=== PATIENT | female | born 1940 | race Caucasian/White ===

== ENCOUNTER 2022-06-08 09:48 | Inpatient (IN) | payer MEDICARE, SELFPAY ==
[2022-06-08] VITALS (14 sets, daily range): BP systolic 96–134; BP diastolic 51–97; PULSE 67–90; RESP 12–18; TEMP 36.2–43; O2SAT 91–98; BMI 25.6; BMI 22.8
--- NOTE | 2022-06-08 10:19 | XR_ITS ---
FINAL REPORT CLINICAL HISTORY: Acute right wrist pain after fall COMPARISON: none FINDINGS: RIGHT WRIST Three views demonstrate a mildly impacted fracture of the distal radial metaphysis. There is mild dorsal angulation of the distal fracture fragments. There is also a nondisplaced fracture of the ulnar styloid process. Mild degenerative changes are noted. There is soft tissue swelling. IMPRESSION: Fractures as above. Reviewed, Interpreted and Dictated by Zachary Mckeon III, MD Transcribed by Mony Lindo Authenticated and [facility]
--- NOTE | 2022-06-08 10:19 | CT_ITS ---
FINAL REPORT TECHNIQUE: Axial CT images of the cervical spine were obtained without contrast. Sagittal and coronal reformatted images were also obtained. This study was performed with techniques to keep radiation doses as low as reasonably achievable (ALARA). Individualized dose reduction techniques using automated exposure control or adjustment of mA and/or kV according to the patient's size were employed. CLINICAL HISTORY: FALL COMPARISON: none FINDINGS: There is no evidence of fracture or dislocation. Mild to moderate degenerative changes are noted. There is evidence of partial fusion posteriorly of C3, C4, and C5. There is mild anterolisthesis of C4 on C5. There is no evidence of canal stenosis. No paraspinous soft tissue abnormality is seen. Limited images of the upper thorax are unremarkable. IMPRESSION: Mild degenerative change. No acute process. Reviewed, Interpreted and Dictated by Zachary Mckeon III, MD Transcribed by Mony Lindo Authenticated and [facility]
--- NOTE | 2022-06-08 10:19 | XR_ITS ---
FINAL REPORT CLINICAL HISTORY: FALL-- right hip pain and fracture COMPARISON: none FINDINGS: RIGHT HIP Two views of the right hip demonstrate a fracture of the right femoral neck. There is mild degenerative change. The femoral heads are properly located. No soft tissue abnormality is seen. There is presence of a ureteral stent partially outside of the patient's body. IMPRESSION: Right femoral neck fracture. Reviewed, Interpreted and Dictated by Zachary Mckeon III, MD Transcribed by Mony Lindo Authenticated and [facility]
--- NOTE | 2022-06-08 10:19 | CT_ITS ---
FINAL REPORT TECHNIQUE: Axial images of the head were obtained without contrast. Coronal reformatted images were also obtained. This study was performed with techniques to keep radiation doses as low as reasonably achievable (ALARA). Individualized dose reduction techniques using automated exposure control or adjustment of mA and/or kV according to the patient's size were employed. CLINICAL HISTORY: FALL-- right hip fracture and wrist fracture-- also hit head COMPARISON: None FINDINGS: There is generalized age-appropriate atrophy. Periventricular low-attenuation areas are seen consistent with mild chronic ischemic changes. There is no evidence of intracranial hemorrhage or mass. There is no evidence of acute infarct. There is no evidence of shift of the midline structures. No skull abnormality is seen on the bone window images. IMPRESSION: Atrophy and mild periventricular chronic ischemic changes. No acute intracranial abnormality identified. Reviewed, Interpreted and Dictated by Zachary Mckeon III, MD Transcribed by Mony Lindo Authenticated and [facility]
--- NOTE | 2022-06-08 10:30 | PC.NURSE ---
DR NICK AT BEDSIDE
--- NOTE | 2022-06-08 10:32 | XR_ITS ---
FINAL REPORT CLINICAL HISTORY: Chest pain, fall COMPARISON: none FINDINGS: A single portable view of the chest was obtained. The heart size is enlarged. Pulmonary vascular congestion is noted. The mediastinum is within normal limits. No acute pulmonary abnormality is identified. There is a small to moderate right pleural effusion. The bony thorax is intact. IMPRESSION: Small to moderate right pleural effusion. Reviewed, Interpreted and Dictated by Zachary Mckeon III, MD Transcribed by Mony Lindo Authenticated and [facility]
--- NOTE | 2022-06-08 10:32 | PC.NURSE ---
PT TO XR AT THIS TIME
--- NOTE | 2022-06-08 10:36 | HMH.EDGENADL ---
Discharge Plan Disposition Patient Disposition: Admitted As Inpatient Condition: Fair Prescriptions Prescriptions: No Action sulfamethoxazole-trimethoprim [Bactrim DS] 800-160 mg Tablet 1 tab PO BID magnesium oxide 400 mg (241.3 mg magnesium) Tablet 400 mg PO DAILY ursodiol 300 mg Capsule 1,200 mg PO HS Clinical Impressions Clinical Impression: Closed fracture of right hip, Fracture of right wrist, COVID-19 virus infection, Migration of ureteral stent Discharge ED Provider: Thomas Hoyt General Adult HPI General Chief complaint: Fall Stated complaint: pain from fall Time Seen by Provider: 06/08/22 10:25 Mode of Arrival: EMS Source of Information: Patient and EMS Limitations: No Limitations Description of Symptoms (Recalled from ER Triage Doc. by RN): PT FALL FROM STANDING AT [place], PT REPORTS HITTING HER HEAD, NO LOC. REPORTS RIGHT WRIST PAIN AND RIGHT HIP PAIN. PT STATES SHE WAS AMBULATING IN ROOM WITHOUT WALKER. NO OBVIOUS DEFORMITY. PAIN WITH MOVEMENT. NO BLOOD THINNERS DOCUMENTED ON EMAR, NO PAIN TO HEAD OR NECK. PT IS COVID +, HAD OUTPT LITHOTRIPSY YESTERDAY FOR KIDNEY STONE History of Present Illness HPI narrative: Patient is [place] [facility] [place] She says that she let go of her walker and fell from a standing position. Injured her right wrist and her right hip. She says she hit her head but not bad. Denies loss of consciousness. Denies headache or neck pain. Patient also reportedly had outpatient lithotripsy yesterday and at that time was discovered to be COVID-positive but felt to be asymptomatic. Patient tells me that she recently was hospitalized at [facility] and was on the ventilator for 6 days. Related Data Home Medications Medication Instructions Recorded Confirmed magnesium oxide 400 mg (241.3 mg 400 mg PO DAILY Supplement 06/08/22 06/08/22 magnesium) tablet sulfamethoxazole 800 1 tab PO BID Infection 06/08/22 06/08/22 mg-trimethoprim 160 mg tablet (Bactrim DS) ursodiol 300 mg capsule 1,200 mg PO HS GALLSTONES 06/08/22 06/08/22 Allergies Allergy/AdvReac Type Severity Reaction Status Date / Time No Known Allergies Allergy Verified 06/08/22 10:19 [facility] Disclaimer: The information contained in this section may have been updated after the patient was seen, as this information can be updated by other users. Social History Smoking Status: Never smoker ROS Obtained: Yes Systems reviewed as appropriate & no additional complaints except as documented Constitutional Constitutional: Denies fever(s), Denies headache(s) and Denies weakness ENT Ears, Nose, Mouth, and Throat: Denies headache(s), Denies nasal discharge, Denies neck pain and Denies sore throat Cardiovascular Cardiovascular: Denies chest pain Respiratory Respiratory: Denies shortness of breath and Denies cough Gastrointestinal Gastrointestingal: Denies abdominal pain, constipation, diarrhea or vomiting Genitourinary Female Genitourinary: Denies difficulty voiding, Denies dysuria and Denies flank pain Musculoskeletal Musculoskeletal: Reports arthralgias (Right hip and wrist), Denies back pain, Denies neck pain and Denies numbness Neurologic Neurologic: Denies headache(s), Denies numbness and Denies weakness Physical Exam General General appearance: alert and in no apparent distress Head Head exam: atraumatic and normocephalic Eye Eye exam: Present normal appearance and EOMI ENT ENT exam: Present mucous membranes moist Neck Neck exam: Present normal inspection and trachea midline Chest Chest inspection: Present normal inspection and symmetric chest wall rise Respiratory Respiratory exam: Present normal lung sounds bilaterally; Absent respiratory distress Cardiovascular Cardiovascular exam: Present regular rate, normal rhythm and normal heart sounds Abdominal Exam Abdominal exam: Present soft and normal bowel sounds; Absent distention, tenderness
--- NOTE | 2022-06-08 10:37 | CT_ITS ---
FINAL REPORT TECHNIQUE: Axial images through the pelvis were performed by computed tomography. Sagittal and coronal reconstruction images were performed. This study was performed with techniques to keep radiation doses as low as reasonably achievable (ALARA). Individualized dose reduction techniques using automated exposure control or adjustment of mA and/or kV according to the patient's size were employed. CLINICAL HISTORY: fall, right hip fracture COMPARISON: none FINDINGS: The appendix is not identified. The urinary bladder is unremarkable. Moderate free fluid is noted. There is a left ureteral stent identified. The visualized portions of the GI tract are unremarkable. Fracture of the right femoral neck. Femoral heads are properly located. There is mild degenerative change noted. Musculature is intact. IMPRESSION: Right femoral neck fracture. Reviewed, Interpreted and Dictated by Zachary Mckeon III, MD Transcribed by Mony Lindo Authenticated and [facility]
--- NOTE | 2022-06-08 10:37 | CT_ITS ---
FINAL REPORT TECHNIQUE: Thin section axial CT images with coronal and sagittal reformats were performed. This study was performed with techniques to keep radiation doses as low as reasonably achievable (ALARA). Individualized dose reduction techniques using automated exposure control or adjustment of mA and/or kV according to the patient''s size were employed. CLINICAL HISTORY: FALL-- right hip fracture COMPARISON: none FINDINGS: There is a fracture of the right femoral neck. There is external rotation of the distal fracture fragment. Femoral head is properly located. There are no masses or fluid collections. There are no soft tissue abnormalities. IMPRESSION: Right femoral neck fracture. Reviewed, Interpreted and Dictated by Zachary Mckeon III, MD Transcribed by Mony Lindo Authenticated and [facility]
--- NOTE | 2022-06-08 11:05 | PC.NURSE ---
Meds administered MS 2mg and Zofran 4mg IV
[2022-06-08 11:13] LABS: Chloride 115 mmol/L (98-107); Potassium 3.9 mmoL/L (3.5-5.1); Sodium 140 mmol/L (136-145)
[2022-06-08 11:15] LABS: Basophils % 0.3 % (0.1-2.0); Eosinophils % 0.1 % (0.1-12.0); Hematocrit 38.6 % (37.0-47.0); Hemoglobin 11.8 g/dL (12.2-16.2); Lymphocytes # 1.2 K/mm3 (0.7-4.5); Lymphocytes % 12.2 % (10-50); Mean Corpuscular HGB Conc 30.6 g/dL (31.8-35.4); Mean Corpuscular Hemoglobin 33.9 pg (27.0-31.2); Mean Corpuscular Volume 110.8 fl (81-99); Monocytes # 0.5 K/mm3 (0.1-1.0); Monocytes % 5.2 % (1.7-9.3); Neutrophils # 8.3 K/mm3 (1.8-7.8); Neutrophils % 82.2 % (37.0-80.0); Platelet Count 202 K/mm3 (142-424); Red Blood Count 3.49 M/mm3 (4.20-5.40); Red Cell Distribution Width 16.8 % (11.5-17.5); White Blood Count 10.1 K/mm3 (4.8-10.8)
[2022-06-08 11:16] LABS: Alanine Aminotransferase 26 U/L (12-78); Albumin Level 2.3 g/dl (3.5-5.0); Albumin/Globulin Ratio 0.6 (1.1-1.8); Alkaline Phosphatase 288 U/L (38-126); Anion Gap 5.9 mEq/L (5-15); Aspartate Amino Transferase 45 U/L (14-36); Bilirubin,Total 1.7 mg/dl (0.2-1.3); Blood Urea Nitrogen 9 mg/dl (7-17); Carbon Dioxide 23 mmol/L (22.0-30.0); Creatinine Clearance Estimated 43 mL/min (50-200); Estimated Glomerular Filt Rate 118 ml/min (>60); GFR (African American) 143 ML/MIN (>60); Total Protein,Serum 6.3 g/dl (6.3-8.2)
[2022-06-08 11:17] LABS: Calcium 7.8 mg/dl (8.4-10.2); Glucose 132 mg/dl (74-100)
--- NOTE | 2022-06-08 11:20 | PC.NURSE ---
[address]
[2022-06-08 11:26] LABS: Influenza A, PCR Not Detected (NotDetected); Influenza B, PCR Not Detected (NotDetected)
[2022-06-08 11:26] LABS: NT Pro Brain Natriuretic Pep. 809 pg/mL (0-450)
--- NOTE | 2022-06-08 11:26 | PC.NURSE ---
DR. NICK AT BEDSIDE TO UPDATE PT
--- NOTE | 2022-06-08 11:42 | PC.NURSE ---
DAUGHTER CALLED TO CHECK ON PT, DAUGHTER UPDATED AT THIS TIME
--- NOTE | 2022-06-08 11:46 | PC.NURSE ---
DR NICK SPEAKING WITH DR. FABIAN
[2022-06-08 12:00] LABS: Coronavirus 19, PCR Detected (NotDetected)
--- NOTE | 2022-06-08 12:00 | PC.NURSE ---
Calling [facility] MD[facility] for Dr Hoyt to talk to [facility] about patient. Dr Mondragon is [facility] dr who done procedure.
--- NOTE | 2022-06-08 12:09 | ECG_ITS ---
APPROVED REPORT Exam: Resting ECG HR:85 bpm ECG Measurements Heart Rate 85 AXES AK 184 P 69 QRSd 100 QRS 8 QT 393 T 66 QTc 435 Conclusion SINUS RHYTHM LOW QRS VOLTAGE IN EXTREMITY LEADS [QRS DEFLECTION < 0.5 mV IN LIMB LEADS] BORDERLINE ECG UNCONFIRMED REPORT Electronically signed by : Aaron Mills MD 06/08/2022 21:49:40
--- NOTE | 2022-06-08 12:18 | PC.NURSE ---
DR. NICK SPEAKING WITH [facility]
--- NOTE | 2022-06-08 12:20 | PC.NURSE ---
1220 RN AT BEDSIDE WITH ED MD TO REMOVE URETHRAL STENT PER [facility] RECOMMENDATION
--- NOTE | 2022-06-08 12:24 | PC.NURSE ---
Dr Hoyt talked to Dr Guerra at [facility]
--- NOTE | 2022-06-08 12:34 | PC.NURSE ---
Right FA, wrist sugartong splint applied; distal digital PMS intact, pt tolerated well
--- NOTE | 2022-06-08 12:35 | PC.NURSE ---
Had upset operator page Dr Mosher for consult on patient. Dr Hoyt talking to Dr Mosher about patient.
--- NOTE | 2022-06-08 12:36 | PC.NURSE ---
DR. NICK SPEAKING WITH DR. DOAN
--- NOTE | 2022-06-08 12:39 | PC.NURSE ---
speaking to dr cooper
--- NOTE | 2022-06-08 12:43 | PC.NURSE ---
Called care management and talked to Brenda about admission to Dr Thornton and Dr Mosher to do surgery
--- NOTE | 2022-06-08 13:22 | PC.NURSE ---
DAUGHTER UPDATED AT THIS
--- NOTE | 2022-06-08 13:35 | PC.NURSE ---
REPORT GIVEN TO Anshu THACKER RN
--- NOTE | 2022-06-08 13:49 | EXP.HP ---
History of Present Illness *Admission Date: 06/08/22 *Reason for visit:: Fall, hip pain *History of present illness: Ms. Darby is an 82-year-old female with history of Sjogren's and Raynaud's who was previously independent at home and lives with her (who is legally blind per her report). Has been in a nursing facility recently after severe illness at necessitating ventilation for 6 days due to severe sepsis. Currently undergoing rehab at [facility] where she fell from a standing position. Upon falling, she sustained injury to her right wrist and right hip. Imaging in the ER showing right wrist fracture and right femoral neck fracture. Orthopedics consulted in the ER. Patient necessitates surgical fixation of right hip. Medicine consulted for admission. After arriving to the floor, patient appears comfortable, in supine position. No pain if she does not move. Complains of some dry mouth and has significant history of autoimmune disorders. Is on minimal medication however including ursodiol. No blood pressure meds. No history of chronic kidney disease. No reported heart disease. Does not wear oxygen. Previously ambulatory at baseline. Of note, admitted to the [facility] on 05/06/2022 and discharged on 05/22/2022. Was admitted for septic shock, encephalopathy, secondary to Klebsiella UTI and obstructing kidney stone.. Completed 7 days of antibiotics during admission. Review of patient's records at show extensive hospitalization. Treated for oral HSV with valacyclovir (last dose 05/22). Requiring Magic mouthwash for oral pain. Records also show history of stable/compensated cirrhosis. 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 Was discharged to rehab on room air. Documents seem to support that she was ventilated from 05/06 through 05/11. Yesterday underwent ureteroscopy with laser lithotripsy and placement of of stent at . Stent appears to have partially come out, removed in the ER. Lopez placed with urinalysis obtained showing concern for persistent UTI release grossly abnormal UA. Urine cultures pending. We will plan to cover empirically at this time with antibiotics. [facility] Disclaimer: The information contained in this section may have been updated after the patient was seen, as this information can be updated by other users. Medical History History of sepsis Kidney stone Surgical History H/O bilateral oophorectomy H/O lithotripsy History of appendectomy History of section History of urethral stent Family History No significant family history Social History Smoking Status: Never smoker alcohol intake: never current occupational status: retired Travel in the last 8 weeks: None housing: assisted living facility lives independently: No Review of Systems Review of Systems Review of systems (narrative): 14 point review of systems performed, pertinent positives and negatives as per HPI Constitutional Constitutional: Denies headache(s) and Denies weakness ENT Ears, Nose, Mouth, and Throat: Denies headache(s) *Musculoskeletal Musculoskeletal: Denies numbness *Neurologic Neurologic: Denies headache(s), Denies numbness and Denies weakness Meds Home Medications and Allergies Home Medications Medication Instructions Recorded Confirmed Type magnesium oxide 400 mg (241.3 mg 400 mg PO DAILY Supplement 06/08/22 06/08/22 History magnesium) tablet sulfamethoxazole 800 1 tab PO BID Infection 06/08/22 06/08/22 History mg-trimethoprim 160 mg tablet (Bactrim DS) ursodiol 300 mg capsule 1,200 mg PO HS GALLSTONES 06/08/22 06/08/22 History New Prescriptions to Start Prescriptions: Allergies Allergy/AdvRea
[2022-06-08 13:51] LABS: Microscopic, Urine URINE MICROSCOPIC (MICROSCOPIC)
--- NOTE | 2022-06-08 14:15 | P.CONPHA_ITS ---
Pharmacy Intervention Comments: MEDICATION RECONCILIATION COMPLETED ON PATIENT USING MAR FROM [facility]. -JAYLYN LARSON, LUCIEND
--- NOTE | 2022-06-08 14:15 | HMH.PHAINT1 ---
Pharmacy Intervention Comments: MEDICATION RECONCILIATION COMPLETED ON PATIENT USING MAR FROM [facility] HOME. -JAYLYN LARSON, LUCIEND
[2022-06-08 14:16] LABS: Appearance,Urine CLEAR (Clear); Blood, Urine 3+ (Negative); Color,Urine YELLOW (Yellow); Glucose,Urine (UA) Negative (Negative); Ketones,Urine Negative (Negative); Leukocyte Esterase,Urine 2+ (Negative); Nitrate,Urine Negative (Negative); PH,Urine 6.5 (5.0-8.5); Protein,Urine TRACE (Negative); Specific Gravity, Urine 1.025 (1.005-1.030)
--- NOTE | 2022-06-08 14:26 | SW/DCPLANNER ---
Addendum entered by Antoinette Padilla RN 06/09/22 08:39: Spoke with Josy at [facility] who states patient can return there today if medically stable. Dr. Thornton states patient will be discharged. She was already receiving therapy there and so does not require an evaluation today. Original Note: This patient currently resides at [facility] level of care. Josy rebolledo/ [facility] stated that patient is paying bedhold and can return once medically stable for discharge. I will continue to follow up and send updates to [facility].
[2022-06-08 14:30] LABS: Bilirubin,Urine 1+ (Negative)
--- NOTE | 2022-06-08 14:39 | EXP.ORTH.CON ---
Documented by User: UBALDO Brewster 06/08/22 14:55 History of Present Illness *Admission Date: 06/08/22 *Reason for visit:: Right hip fracture, right wrist fracture *History of present illness: Mrs. Darby is an 82 year old female admitted to the acute inpatient service after sustaining a mechanical fall at [facility] [place] where she currently resides. This afternoon the patient is lying comfortably in bed. She states that she was walking in her room in the group home this morning without the use of a walker when she fell onto her right side, causing her to injure her right hip and wrist. She is unsure of how or why she fell. She states that she was unable to ambulate at that time so she was subsequently brought to the [facility] emergency department where x-ray demonstrated a right subcapital femoral neck fracture and right distal radius fracture. Patient reports right hip pain as to be expected. She denies dizziness, loss of consciousness, or any other injuries at this time. At baseline she states that she normally lives in her own home with her and is ambulatory without the use of any walking aids. She is typically independent for all activities of daily living. She was recently placed at [facility] for short-term rehabilitation after being admitted to the [facility] with sepsis and encephalopathy secondary to severe urinary tract infection from obstructing left ureteral stone. She required mechanical ventilation and pressor support at that time. Per ER documentation, the patient underwent outpatient cytoscopy, ureteroscopy, stent exchange, and basket removal of left ureteral stone yesterday. No history of any distal tingling/numbness. She denies any other symptoms or concerns at this time. [facility] Disclaimer: The information contained in this section may have been updated after the patient was seen, as this information can be updated by other users. Medical History History of sepsis Kidney stone Surgical History H/O bilateral oophorectomy H/O lithotripsy History of appendectomy History of section History of urethral stent Family History No significant family history Social History Smoking Status: Never smoker alcohol intake: never current occupational status: retired Travel in the last 8 weeks: None housing: assisted living facility lives independently: No Review of Systems Constitutional Constitutional: Denies headache(s) and Denies weakness ENT Ears, Nose, Mouth, and Throat: Denies headache(s) *Musculoskeletal Musculoskeletal: Denies numbness *Neurologic Neurologic: Denies headache(s), Denies numbness and Denies weakness Meds Home Medications and Allergies Home Medications Medication Instructions Recorded Confirmed Type magnesium oxide 400 mg (241.3 mg 400 mg PO DAILY Supplement 06/08/22 06/08/22 History magnesium) tablet sulfamethoxazole 800 1 tab PO BID Infection 06/08/22 06/08/22 History mg-trimethoprim 160 mg tablet (Bactrim DS) ursodiol 300 mg capsule 1,200 mg PO HS GALLSTONES 06/08/22 06/08/22 History New Prescriptions to Start Prescriptions: Allergies Allergy/AdvReac Type Severity Reaction Status Date / Time No Known Allergies Allergy Verified 06/08/22 10:19 Ortho Exam (Inpt) Vital signs and Labs for Last 24 Hours: Temp Pulse Resp BP Pulse Ox 97.7 F 87 17 115/57 L 92 L 06/08/22 14:04 06/08/22 14:04 06/08/22 14:04 06/08/22 14:04 06/08/22 14:04 Laboratory Results - last 24 hr 06/08/22 10:55: WBC 10.1, RBC 3.49 L, Hgb 11.8 L, Hct 38.6, MCV 110.8 H, MCH 33.9 H, MCHC 30.6 L, RDW 16.8, Plt Count 202, MPV 9.0, Neut % (Auto) 82.2 H, Lymph % (A
[2022-06-08 14:40] LABS: RBC,Urine 20-50 #/hpf (0-3)
[2022-06-08 14:41] LABS: Bacteria,Urine Trace /lpf; Squamous Epithelial Cell,Urine Occasional #/hpf (0-5)
--- NOTE | 2022-06-08 20:55 | XR_ITS ---
PROCEDURE INFORMATION: Exam: XR Right Hip Exam date and time: 06/08/2022 11:21 PM Age: 82 years old Clinical indication: Screening exam; Post op; Prior surgery; Additional info: Postop in pacu, ap / cross table latera S/P R lyric TECHNIQUE: Imaging protocol: Radiologic exam of the Right hip. Views: 2 or 3 views hip with pelvis when performed. 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 There is no acute osseous finding. The bony pelvis is intact. Left hip is normally aligned. Soft tissues: Postsurgical changes of the soft tissues surrounding the right hip are noted. IMPRESSION: Anatomic alignment of the bipolar right hip prosthesis.
--- NOTE | 2022-06-08 20:56 | EXP.ANES.CKL ---
[facility] Disclaimer: The information contained in this section may have been updated after the patient was seen, as this information can be updated by other users. Medical History History of sepsis Kidney stone Surgical History H/O bilateral oophorectomy H/O lithotripsy History of appendectomy History of section History of urethral stent Family History No significant family history Social History Smoking Status: Never smoker alcohol intake: never substance use type: denies use current occupational status: retired Travel in the last 8 weeks: None housing: assisted living facility lives independently: No [facility] Anesthesia Checklist Patient Identification Patient Identification: Arm Band Structural Data Admitted From: Inpatient Planned Operative Procedure/s: Right Hip Hemiarthroplasty Consent for Planned Operative Procedure(s) Verified: Yes Verified Documents: Surgical Consent and History and Physical Additional verifications Anesthesia Reactions: No Airway Assessment C-Spine Mobility Assessed: Yes TMJ Mobility Assessed: Yes Dentition: Good Dentition Neurological Assessment Level of Consciousness: Awake and Alert Anesthesia Plan Anesthesia Risk discussed: Yes Anesthesia Plan: Verified ASA Class: II Anesthesia Type: MAC w/Spinal
--- NOTE | 2022-06-08 21:00 | XR_ITS ---
PROCEDURE INFORMATION: Exam: XR Right Wrist Exam date and time: 06/08/2022 9:00 PM Age: 82 years old Clinical indication: Screening exam; Post reduction in operating room using c-arm visualization. ; Additional info: Closed reduction right wrist using c-arm guidance. TECHNIQUE: Imaging protocol: Radiologic exam of the Right wrist. Views: 1 or 2 views. COMPARISON: CR XR WRIST RT MIN 3V 06/08/2022 10:28 AM FINDINGS: Bones/joints: 2 intraoperative spot films of the right wrist are obtained with the wrist in a cast. Detail is quite limited. Gross normal alignment is noted on both views. Specifically, no significant angulation is noted on the lateral view. Soft tissues: Soft tissues can not be evaluated. IMPRESSION: Limited detail intraoperative images of the right wrist in a cast. Alignment is grossly normal without significant angulation appreciated. Dedicated postoperative images are recommended.
--- NOTE | 2022-06-08 22:39 | XR_ITS ---
PROCEDURE INFORMATION: Exam: XR Right Wrist Exam date and time: 06/08/2022 11:21 PM Age: 82 years old Clinical indication: Screening exam; Postop; Prior surgery; Additional info: Postop in pacu S/P closed reduction / cast TECHNIQUE: Imaging protocol: Radiologic exam of the Right wrist. Views: 3 or more views. COMPARISON: SD XR WRIST RT 2V 06/08/2022 9:00 PM FINDINGS: Bones/joints: Right wrist is in a cast. The osseous structures are diffusely osteopenic. The distal radial fracture is difficult to identify due to the overlying cast and osteopenia. Anatomic alignment is noted involving the distal aspect of the radius without angulation present. The DRUJ is intact. The carpal bones are normally aligned with prominent degenerative changes of the radial aspect of the wrist. Soft tissues: The soft tissues can not be evaluated. IMPRESSION: A cast is in place over the right wrist. The distal radius is anatomically aligned. The fracture is difficult to identify due to the cast and significant osteopenia.
--- NOTE | 2022-06-08 22:40 | EXP.OP.NOTE ---
Date of procedure: 06/08/22 Pre-op Diagnosis:: Right femoral neck fracture, right distal radius fracture Post-op Diagnosis:: Same Procedure performed:: 86817: Cemented right hip hemiarthroplasty 60932: Closed reduction and casting right distal radius fracture Surgeon:: Anil Mosher JR, MD Supervisor Customer Services(s):: Renetta Garcia PA-C SAUSAGE TIER:: Dyllan Guidry Anesthesia: GETA Estimated blood loss (mL): 200 Clinical Note:: 82-year-old female fell, sustained right femoral neck and right distal radius fracture. I had a discussion with her regarding further management, recommended right cemented hip hemiarthroplasty, closed reduction with long-arm cast for her distal radius. She was amenable with the plan. We discussed the risk and benefits of surgery. Risks included but were not limited to pain, bleeding, infection, damage to adjacent structures, need for further surgery, wound healing complications, loss of limb, . Patient expressed verbal consent and written consent was obtained for the above procedure. Operative findings:: Grossly symmetric leg lengths, hip stable through range of motion, appropriate alignment of distal radius fracture. Size 0 stem, size 45 bipolar head, standard offset stem, +0 head. Ortiz [employer] Nephew implants. Operative note:: Patient was identified in preoperative holding. Operative site was marked in indelible ink. History, physical, consent were reviewed and updated. Patient was surrendered to the anesthesia team, taken to the operative suite. Anesthesia was induced. Patient was then placed in the lateral decubitus position on a well-padded operative table. All bony prominences were padded and an axillary roll was placed. The operative extremity was prepped and draped in the usual sterile fashion. The operative team donned sterile gowns and gloves and a timeout was called. All in attendance agreed regarding the patient's identity, procedure, operative site. Weight-based dose of antibiotics was given prior to incision. A skin maker was then used to robi all bony prominences. Skin incision was then carried out extending from the greater trochanter in a curvilinear fashion posteriorly across the buttocks. I incised the skin with a scalpel, then using a Bovie dissected through tissues. The fascia olaf was incised utilizing Metzenbaum scissors. This was taken down to the bursa, which was removed utilizing a rongeur. Utilizing a periosteal elevator as well as the sponge, the fat was then freed from the short external rotators of the left hip after these were placed and stretched. The sciatic nerve was protected. Bovie was used to remove the short external rotators from the greater trochanter, which revealed the joint capsule. His were tagged for later repair. The capsule was cleared and incised utilizing a T-shape incision. A fracture hematoma was noted upon entering the joint capsule as well as the femoral neck fracture. A cork screw was then used to remove the fractured femoral head, which was given to the production line technician which was sized on the back table. All bony remnants were then removed from the acetabulum and surrounding soft tissue with a rongeur. Acetabulum was then inspected and found to be clear. Attention was then turned to the proximal femur where a cutting tunnel was used to robi the femur for the femoral neck cut. A sagittal saw was then used to make the femoral cut. Box osteotome was then used to remove the bone from proximal femur. A femoral neck elevator was utilized. Next, attention was turned to broaching. Initially, a small broach was placed, first making efforts to lateralize the broach then the femoral canal. Next, the trial components were inserted consisting of the above-mentioned component sizes. The hip was taken through range of motion and tested to adduction, internal and external rotations as well as with a shuck and a posterior directed force on a flexed hip. It was noted that these size were stable through the ran
--- NOTE | 2022-06-08 23:15 | P.PNANES_ITS ---
[facility] Anesthesia Record Part I Anesthesia Record I Intake, IV Amount: 1,300 Estimated blood loss (mL): 200 Urine output (mL): 200 Blood Products used (#): none Blood Pressure: 121/66 SaO2: 92 Pulse Rate: 89 Respiratory Rate: 16 Temperature: 97.2 F Patient is:: Drowsy and Stable Stable to PACU at:: 23:10
--- NOTE | 2022-06-08 23:34 | PC.NURSE ---
REPORT TAKEN FROM CARLIN JOHNSON RN IN PACU AT THIS TIME.
--- NOTE | 2022-06-08 23:42 | PC.NURSE ---
Arrived back to floor from surgery via stretcher @ 1200.
--- NOTE | 2022-06-08 23:51 | SUR.PHASEI ---
2340-Detailed report called to JACINTO Viveros 2345- Brought pt up to room 202 accompanied by this RN and JACINTO Easton. Bedside hand off given to JACINTO Viveros 2346- During report, pt's rt hand began turning purple. This RN requested Guanako Garces APRN to come to bedside to assess cast and pt's hand. GRATED CHEESE MAKER did asses and said her fingers were still warm to touch and had appropriate cap refill, the color of her fingers could be d/t her autoimmune disorder. NNO at this time.
[2022-06-09] VITALS (10 sets, daily range): BP systolic 90–126; BP diastolic 50–68; PULSE 58–86; RESP 16–20; TEMP 36.1–36.6; O2SAT 90–93; BMI 24.1
--- NOTE | 2022-06-09 00:03 | PC.NURSE ---
UPON PT ARRIVING TO THE FLOOR FROM PACU IT WAS NOTED THAT PT'S FINGERS LOOKED DUSKY AND SLIGHTLY PURPLE. JUNE ANDRADE WAS CALLED AND CAME TO SEE PT. STATED THAT THE CAST ON PT'S RT ARM DID NOT APPEAR TO BE TOO TIGHT AT THE MOMENT NAD TO MONITOR PT'S FINGERS CLOSELY.
--- NOTE | 2022-06-09 01:52 | PC.NURSE ---
SPOKE WITH PT'S DAUGHTER AND UPDATED HER ON PT STATUS.
--- NOTE | 2022-06-09 04:22 | PC.NURSE ---
NO ACUTE CHANGES SINCE PT ARRIVED BACK FROM SURGERY. PT HAS RESTED WELL. HAS C/O PAIN X1 THIS MORNING AND WAS MEDICATED PER MAR FOR PAIN. FINGERS ON RIGHT HAND ARE STILL DUSKY BUT ARE WARM TO TOUCH. CADASTRAL SURVEYOR IS AWARE. VSS. PT HAS STATED THAT HER LEGS FEEL HEAVY. DAUGHTER HAS CALL SEVERAL TIMES TO CHECK ON PT THIS SHIFT. CARLI REMAINS IN PLACE.
[2022-06-09 07:36] LABS: Chloride 119 mmol/L (98-107)
[2022-06-09 07:37] LABS: Potassium 4.1 mmoL/L (3.5-5.1); Sodium 144 mmol/L (136-145)
[2022-06-09 07:38] LABS: Basophils # 0.1 K/mm3 (0-0.2); Basophils % 0.5 % (0.1-2.0); Eosinophils # 0.2 K/mm3 (0.0-0.4); Eosinophils % 1.2 % (0.1-12.0); Hematocrit 35.3 % (37.0-47.0); Lymphocytes # 1.8 K/mm3 (0.7-4.5); Lymphocytes % 14.1 % (10-50); Mean Corpuscular HGB Conc 31.3 g/dL (31.8-35.4); Mean Corpuscular Hemoglobin 34.1 pg (27.0-31.2); Mean Corpuscular Volume 109.1 fl (81-99); Monocytes # 0.8 K/mm3 (0.1-1.0); Monocytes % 6.2 % (1.7-9.3); Neutrophils # 9.9 K/mm3 (1.8-7.8); Platelet Count 150 K/mm3 (142-424); Red Blood Count 3.24 M/mm3 (4.20-5.40); Red Cell Distribution Width 16.9 % (11.5-17.5); White Blood Count 12.6 K/mm3 (4.8-10.8)
[2022-06-09 07:39] LABS: Alanine Aminotransferase 21 U/L (12-78); Aspartate Amino Transferase 48 U/L (14-36); Blood Urea Nitrogen 9 mg/dl (7-17); Creatinine Clearance Estimated 41 mL/min (50-200); Estimated Glomerular Filt Rate 153 ml/min (>60); GFR (African American) 185 ML/MIN (>60)
[2022-06-09 07:40] LABS: Albumin Level 1.9 g/dl (3.5-5.0); Albumin/Globulin Ratio 0.6 (1.1-1.8); Alkaline Phosphatase 229 U/L (38-126); Anion Gap 7.1 mEq/L (5-15); Bilirubin,Total 1.4 mg/dl (0.2-1.3); Calcium 7.6 mg/dl (8.4-10.2); Carbon Dioxide 22 mmol/L (22.0-30.0); Globulin 3.1 g/dL (1.3-3.2); Glucose 74 mg/dl (74-100); Magnesium 1.7 mg/dl (1.6-2.3)
--- NOTE | 2022-06-09 08:17 | EXP.DC.SUM ---
General Admission date:: 06/08/22 Discharge date: 06/09/22 HPI HPI HPI: Ms. Darby is an 82-year-old female with history of Sjogren's and Raynaud's who was previously independent at home and lives with her (who is legally blind per her report). Has been in a nursing facility recently after severe illness at necessitating ventilation for 6 days due to severe sepsis. [place] [facility] [place] position. Upon falling, she sustained injury to her right wrist and right hip. Imaging in the ER showing right wrist fracture and right femoral neck fracture. Orthopedics consulted in the ER. Patient necessitates surgical fixation of right hip. Medicine consulted for admission. After arriving to the floor, patient appears comfortable, in supine position. No pain if she does not move. Complains of some dry mouth and has significant history of autoimmune disorders. Is on minimal medication however including ursodiol. No blood pressure meds. No history of chronic kidney disease. No reported heart disease. Does not wear oxygen. Previously ambulatory at baseline. Of note, admitted to the [facility] on 05/06/2022 and discharged on 05/22/2022. Was admitted for septic shock, encephalopathy, secondary to Klebsiella UTI and obstructing kidney stone.. Completed 7 days of antibiotics during admission. Review of patient's records at show extensive hospitalization. Treated for oral HSV with valacyclovir (last dose 05/22). Requiring Magic mouthwash for oral pain. Records also show history of stable/compensated cirrhosis. 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 Was discharged to rehab on room air. Documents seem to support that she was ventilated from 05/06 through 05/11. Yesterday underwent ureteroscopy with laser lithotripsy and placement of of stent at . Stent appears to have partially come out, removed in the ER. Lopez placed with urinalysis obtained showing concern for persistent UTI release grossly abnormal UA. Urine cultures pending. We will plan to cover empirically at this time with antibiotics. Hospital Course Hospital Course Hospital Course: 82-year-old female with recent hospitalization for sepsis at , has been receiving therapy at [place]. Fell from standing height and broke her right hip and right wrist. ER consulted with hospital medicine for admission, hospitalist made determination to admit for orthopedics and surgical intervention. initiated on IV fluids and IV pain medication. Anticipate surgery later this afternoon. Problems addressed as follows: Right femoral neck fracture Right wrist fracture Severe pain -Orthopedics consulted, appreciate their recommendations on patient. Patient taken for surgery evening of 06/08. Right hip fixed, see Ortho documentation for full details. Underwent cemented right hip hemiarthroplasty. PT and OT evaluated patient on morning of 06/09. WBT as tolerated. Stable for [facility] for [facility]hab. Recommend xarelto 10 mg daily for DVT prophylaxis. Of note, right wrist fracture casted only. 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 Continue ursodiol 1200 mg nightly per home regimen UTI Recent lithotripsy - Reviewed patient's records from via [facility], positive for Klebsiella pneumoniae UTI that was pansensitive. Completed empiric antibiotics during hospitalization. Given lithotripsy yesterday and abnormal urinalysis with leukesterase and nitrite, initiated ceftriaxone IV 1 g daily pending urine culture. Recommend continuing 1gm IM for 7 days. Of note, stent removed after ER discussion with patient's urologist at . Keep follow-up appointment as scheduled previously. Severe Protein calorie malnutrition: patient has significant lower extremity edema, hypoalbuminemia, and macrocytosis. Concerning for malnutrition. Initiated on
--- NOTE | 2022-06-09 09:48 | HMH.PTEV ---
Physical Therapy Evaluation Rehab PT IP Evaluation Start: 06/08/22 20:51 Freq: ONCE Status: Active Protocol: Document 06/09/22 09:40 PHORJAIME (Rec: 06/09/22 09:47 PHORNE [id number]) Subjective/History History History 82 yowf adm [place] [facility] [place] [facility] [place] R [place] fx and R BBFFx, now S/P R hip PUENTE and closed reduction with casting of R UE. She will be WBAT to the R LE and NWB to the R UE at this time. She has hx of significant co- morbidities and recent extended hospitalization with oral intubation which necessitated her rehab stay. She presents this date with 4+ pitting edema to B LE. Subjective Subjective Pt c/o pain all over even prior to mobility attempts. Rehab PT IP Eval Objective Appearance Patient Behavior Guarded,Confused Patient Orientation Person Difficulty following instructions mild Speech Pattern Clear Ambulation Patient Able to Ambulate No Balance Ability to Arise Unable Sitting Balance Leans or slides in chair Dynamic Sitting Balance Ability Poor Transfers Bed Transfer Ability Total/Dependent (100%) ROM All Extremities PT ROM Status WFL Abnormal ROM Comment except R UE NT due to cast from elbow distal. MMT All Extremities PT MMT ABN Rehab PT IP prob,goals,plan Problems Date of Evaluation: 06/09/22 PT IP Problems Bed Mobility,Transfers Rehab Potential Rehab Potential Fair Plan PT Intervention Plan Bed Mobility,Transfers, Therapeutic Exercise PT Plan Frequency BID Duration LOS Discharge Goals Bed Transfer Ability Maximum x 2 (75% assist) Sit to Stand Chair Transfer Ability Total/Dependent (100%) Discharge Plan PT Discharge Plan Pt is currently most appropriate for SNF placement once medically stable for d/c. G -code Required No Eval Complexity Eval Charge Codes 43140 - High Complexity PHYSICIAN CERTIFICATION: I certify the specified therapy services for Traci Darby are required, authorized, and reviewed every 30 days.
--- NOTE | 2022-06-09 10:05 | HMH.OTEV ---
OT Inpatient Evaluation Rehab OT IP Evaluation Start: 06/08/22 20:51 Freq: ONCE Status: Active Protocol: Document 06/09/22 09:44 [facility] (Rec: 06/09/22 10:04 [facility] [id number]) Rehab OT IP Assessment Subjective History Pt is oriented x2 person and . Pt was admitted to [facility] on 06/08/22 due to Fall, hip pain. Pt was unable to answer PLOF questions due to confusion. Pt was at [facility] [place] a [place] and sustained a Right hip and wrist fx. She required a Closed reduction and casting right distal radius fracture and Cemented right hip hemiarthroplasty on 06/08/22. Prior to SNF stay she had a long hospitalization at with mechanical ventilation requiring skilled thearpy stay . Pt also has multiple co- morbidities. Pt has a past medical history of the following: H/O bilateral oophorectomy H/O lithotripsy History of appendectomy History of section History of urethral stent Subjective I'll scream. It hurts. Objective Patient Orientation Person,Birthday Upper Extremity Gross ROM Mod Limitation 50% Shoulder ROM Limitations Muscle Weakness,Pain Elbow ROM Limitations Muscle Weakness,Pain Wrist Limitations of Range of Motion Muscle Weakness,Pain Bed Mobility bed mobility-scooting,bed mobility - supine/sit,bed mobility - rolling Assist Level Total/Dependent (100%) decrease in endurance Yes Rehab OT IP prob,goals,plan Problems Date of Evaluation: 06/09/22 OT IP Problems Bed Mobility,Transfers,Balance ,Self care,Safety Rehab Potential Rehab Potential Good Equipment Needs Assistive Devices Rolling / Wheeled Walker Plan OT intervention Plan Bed Mobility,Transfers,Balance ,Self care,Safety,Therapeutic Exercise OT Plan Frequency BID Duration LOS Discharge Goals Bed Mobility Ability
--- NOTE | 2022-06-09 10:19 | EXP.ORTH.PN ---
Subjective *Date: 06/09/22 *Time: 09:30 Interval history: Mrs. Darby is an 82-year-old female who underwent a right hip cemented hemiarthroplasty and right distal radius closed reduction yesterday evening 06/08/[address] Mosher. Today the patient is postop day #1. This morning the patient is lying comfortably in bed. She reports right hip pain as to be expected. She states that she did not rest well last night. No history of any distal tingling/numbness. She has not yet ambulated, but sat at the edge of the bed with the assistance of physical therapy. She denies any other symptoms or concerns at this time. Ortho Exam (Inpt) Vital signs and Labs for Last 24 Hours: Temp Pulse Resp BP Pulse Ox 97.7 F 86 20 115/62 90 L 06/09/22 08:00 06/09/22 08:00 06/09/22 08:00 06/09/22 08:00 06/09/22 08:00 Laboratory Results - last 24 hr 06/08/22 10:55: WBC 10.1, RBC 3.49 L, Hgb 11.8 L, Hct 38.6, MCV 110.8 H, MCH 33.9 H, MCHC 30.6 L, RDW 16.8, Plt Count 202, MPV 9.0, Neut % (Auto) 82.2 H, Lymph % (Auto) 12.2, [place] % (Auto) 5.2, Eos % (Auto) 0.1, Baso % (Auto) 0.3, Neut # (Auto) 8.3 H, Lymph # (Auto) 1.2, Overton # (Auto) 0.5, Eos # (Auto) 0.0, Baso # (Auto) 0.0 06/08/22 10:55: Sodium 140, Potassium 3.9, Chloride 115 H, Carbon Dioxide 23, Anion Gap 5.9, BUN 9, Creatinine 0.50 L, Estimated Creat Clear 43, Estimated GFR 118, Est GFR ( Amer) 143, Glucose 132 H, Calcium 7.8 L, Total Bilirubin 1.7 H, AST 45 H, ALT 26, Alkaline Phosphatase 288 H, Total Protein 6.3, Albumin 2.3 L, Globulin 4.0 H, Albumin/Globulin Ratio 0.6 L 06/08/22 10:55: NT-Pro-B Natriuret Pep 809 H 06/08/22 11:20: SARS-CoV-2 (PCR) Detected A, Influenza A Untype (PCR) Not detected, Influenza Type B (PCR) Not detected 06/08/22 13:30: Urine Color Yellow, Urine Appearance Clear, Urine pH 6.5, Ur Specific [place] 1.025, Urine Protein Trace, Urine Glucose (UA) Negative, Urine Ketones Negative, Urine Blood 3+, Urine Nitrate Negative, Urine Bilirubin 1+ A, Urine Urobilinogen 4.0, Ur Leukocyte Esterase 2+ A, Urine RBC 20-50, Urine WBC 10-20, Ur Squamous Epith Cells Occasional, Urine Bacteria Trace 06/09/22 07:10: WBC 12.6 H, RBC 3.24 L, Hgb 11.0 L, Hct 35.3 L, MCV 109.1 H, MCH 34.1 H, MCHC 31.3 L, RDW 16.9, Plt Count 150 D, MPV 10.0, Neut % (Auto) 78.0, Lymph % (Auto) 14.1, Overton % (Auto) 6.2, Eos % (Auto) 1.2, Baso % (Auto) 0.5, Neut # (Auto) 9.9 H, Lymph # (Auto) 1.8, Overton # (Auto) 0.8, Eos # (Auto) 0.2, Baso # (Auto) 0.1 06/09/22 07:10: Sodium 144, Potassium 4.1, Chloride 119 H, Carbon Dioxide 22, Anion Gap 7.1, BUN 9, Creatinine 0.40 L, Estimated Creat Clear 41, Estimated GFR 153, Est GFR ( Amer) 185 D, Glucose 74 D, Calcium 7.6 L, Magnesium 1.7, Total Bilirubin 1.4 H, AST 48 H, ALT 21, Alkaline Phosphatase 229 H, Total Protein 5.0 L, Albumin 1.9 L D, Globulin 3.1, Albumin/Globulin Ratio 0.6 L I & O for Labs for Last 24 Hours: Intake & Output 06/06/22 06/07/22 06/08/22 06/09/22 23:59 23:59 23:59 23:59 Intake Total 1300 / 1300 696 / 696 Output Total 0 / 0 Balance 1300 / 1300 696 / 696 Weight 125 lb 2 oz 131 lb 2.801 oz Head: Present normocephalic and atraumatic Eyes: Present as per HPI ENT: Present normal exam Neck: Present normal inspection, full ROM and trachea midline; Absent lymphadenopathy Respiratory: Present normal respiratory effort, able to speak in complete sentences and symmetric chest movement; Absent accessory muscle use Cardiac: Present Reg Rate and Rhythm GI: Present soft; Absent tenderness Comment:: Upon examination of the lower extremities: The limb lengths are grossly equal. Dressing present over the right hip is clean, dry, and intact. There is a Ortiz & Nephew Rosmery wound dressing in place. The right hip and proximal femur are tender to palpation. Attempted movements of the right hip are painful. Thigh and calf are soft and nontender; Homans' sign is negative. No clinical evidence of DVT or compartment syndrome noted. Posterior
--- NOTE | 2022-06-09 10:46 | P.PNANES_ITS ---
[facility] Anesthesia Record Part II Anesthesia Record Part II Discharge Time: 23:40 Destination: Second Floor PACU nurse assessment reviewed?: Yes Patient Condition:: Good Anesthesia Complications:: None Swallowing reflex intact?: Yes Cyanosis?: No Blood Pressure: 96/61 Pulse Rate: 72 Temperature: 97.2 F Mental Status: Lethargic Pain level:: 0 Nausea and/or vomitting:: None Intake, IV Amount: 0
--- NOTE | 2022-06-09 11:09 | PC.NURSE ---
Current Medications Lactated Ringer's (Lactated Ringer's 1000 Ml Bag) 1,000 mls @ 75 mls/hr IV .[id number] [facility] Stop: 07/08/22 12:44 Last Admin: 06/09/22 03:11 Dose: Not Given Ceftriaxone Sodium 1 gm/ (Sodium Chloride) 50 mls @ 100 mls/hr IV Q24H [facility] Stop: 06/22/22 15:29 Last Admin: 06/08/22 16:12 Dose: 100 mls/hr Magnesium Oxide (Magnesium Oxide 400mg Tablet) 400 mg PO DAILY [facility] Stop: 07/09/22 08:59 Last Admin: 06/09/22 09:13 Dose: 400 mg Morphine Sulfate (Morphine 2mg/Ml Syringe) 2 mg IV Q2HP PRN PRN Reason: Severe Pain Stop: 07/08/22 12:40 Last Admin: 06/09/22 06:55 Dose: 2 mg Mupirocin (Mupirocin 2% Ointment 22gm Tube) 0 gm TP BID [facility] Stop: 06/13/22 20:59 Last Admin: 06/09/22 09:17 Dose: 22 gm Ondansetron HCl (Ondansetron 4mg/2ml Vial) 4 mg IV Q6HP PRN PRN Reason: Nausea Stop: 07/08/22 20:50 Oxycodone HCl (Oxycodone 5mg Immediate Release Tablet) 5 mg PO Q6HP PRN PRN Reason: Moderate Pain Stop: 07/08/22 20:50 Multivit/Folic Acid/Iron ( Multivitamin W/Iron) 1 each PO DAILY [facility] Stop: 07/09/22 08:59 Last Admin: 06/09/22 09:12 Dose: 1 each Rivaroxaban (Rivaroxaban 10mg Tablet) 10 mg PO QPMWITHMEAL [facility] Stop: 07/09/22 17:29 Senna/Docusate Sodium (Sennosides 8.6mg/Docusate 50mg Tablet) 1 tab PO DAILY [facility] Stop: 07/09/22 08:59 Last Admin: 06/09/22 09:19 Dose: 1 tab Sodium Chloride (Sodium Chloride 0.9% 10ml Flush Syringe) 10 ml IV NEEDED PRN PRN Reason: Maintain IV Site Stop: 07/08/22 20:50 Ursodiol (Ursodiol 300 Mg Capsule) 1,200 mg PO HS [facility] Stop: 07/08/22 20:59 Last Admin: 06/08/22 21:00 Dose: Not Given
== END 2022-06-09 12:08 | disposition home or self-care (01) | DRG 521 ==
LOC: ER 12:51 → 2ND 13:04
PROVIDERS: Orthopaedic Surgery; Admitting Provider Internal Medicine Adolescent Medicine; Emergency Provider Emergency Medicine; PCP Family Medicine; Visit Provider Internal Medicine Adolescent Medicine
PROC: 0SRR0J9 Replacement of Right Hip Joint, Femoral Surface with Synthetic Substitute, Cemented, Open Approach (ICD-10-PCS; principal; 2022-06-08 20:15)
DX: S72.001A Fracture of unspecified part of neck of right femur, initial encounter for closed fracture (principal); E43 Unspecified severe protein-calorie malnutrition; U07.1 COVID-19; S52.501A Unspecified fracture of the lower end of right radius, initial encounter for closed fracture; N39.0 Urinary tract infection, site not specified; W19.XXXA Unspecified fall, initial encounter; S62.101A Fracture of unspecified carpal bone, right wrist, initial encounter for closed fracture; K74.60 Unspecified cirrhosis of liver; M35.00 Sjogren syndrome, unspecified; D89.89 Other specified disorders involving the immune mechanism, not elsewhere classified; Z68.24 Body mass index [BMI] 24.0-24.9, adult; B96.1 Klebsiella pneumoniae [K. pneumoniae] as the cause of diseases classified elsewhere; E88.09 Other disorders of plasma-protein metabolism, not elsewhere classified
CPT/HCPCS: 27236; 36415; 51702; 70450; 71045; 72125; 72192; 73100; 73110; 73502; 73700; 76000; 80053; 81001; 83735; 83880; 85025; 87086; 93005; 97163; 97167; 99285; C1713; C9803; J0696; J2405; J2704; J3370; U0003; U0005

== ENCOUNTER → 2022-06-22 10:50 | Outpatient (CLI) | payer MEDICARE, SELFPAY ==
--- NOTE | 2022-06-22 10:54 | XR_ITS ---
FINAL REPORT CLINICAL HISTORY: rt hip fracture COMPARISON: 06/08/2022 FINDINGS: AP and frog leg views of the right hip with an AP pelvis were obtained. Again seen are changes from right hip arthroplasty. There is no change in a calcific density lateral to the proximal right femoral shaft. Calcifications medial to the femoral neck were not well seen on the prior exam. There has been improved soft tissue edema. IMPRESSION: 1. Intact arthroplasty hardware with improved soft tissue edema. 2. Calcifications may be related to the original fracture and likely stable from the prior plain films. Reviewed, Interpreted and Dictated by Monserrat Peralta MD Transcribed by Ruth La Authenticated and . [facility]
--- NOTE | 2022-06-22 10:54 | XR_ITS ---
FINAL REPORT CLINICAL HISTORY: wrist fracture COMPARISON: 06/08/2022 FINDINGS: AP, oblique, and lateral views of the right wrist were obtained. Plaster cast obscures detail. There is osteopenia which also limits the exam. Distal ulnar and radial fractures are not well visualized. There is degenerative joint disease. IMPRESSION: Distal ulnar and radial fractures not well visualized. Consider follow-up exam after removal of plaster cast. Reviewed, Interpreted and Dictated by Monserrat Peralta MD Transcribed by Ruth La Authenticated and . [facility]
== END ==
PROVIDERS: PCP Internal Medicine Adolescent Medicine; Visit Provider Physician Assistant Surgical
DX: S72.001A Fracture of unspecified part of neck of right femur, initial encounter for closed fracture (principal); S62.101A Fracture of unspecified carpal bone, right wrist, initial encounter for closed fracture
CPT/HCPCS: 73110; 73502

== ENCOUNTER → 2022-07-14 09:53 | Outpatient (CLI) | payer MEDICARE, SELFPAY ==
--- NOTE | 2022-07-14 10:36 | XR_ITS ---
FINAL REPORT CLINICAL HISTORY: Rt hip pain, replacement x 3 mos ago COMPARISON: 06/08/2022 FINDINGS: RIGHT HIP Two views of the right hip demonstrate no acute fracture or dislocation. There are postoperative changes from hip arthroplasty. The joint spaces appear normal. The visualized bony structures are well aligned. There is an 18 mm soft tissue calcification or bone fragment adjacent to the proximal lateral femur which is stable. IMPRESSION: No acute bony abnormality. Reviewed, Interpreted and Dictated by Zachary Mckeon III, MD Transcribed by Mony Lindo Authenticated and [facility]
--- NOTE | 2022-07-14 10:36 | XR_ITS ---
FINAL REPORT CLINICAL HISTORY: wrist fracture, F/U COMPARISON: 06/22/2022 FINDINGS: RIGHT WRIST Three views demonstrate cast is been removed. There is a subacute transverse fracture of the distal radial metaphysis with some callus formation at the fracture site. There is a subacute to chronic fracture of the ulnar styloid process. No acute bone abnormality. The visualized joint spaces are normally aligned. The soft tissues are unremarkable. IMPRESSION: Subacute distal radius fracture with some callus formation. Subacute/chronic fracture ulnar styloid process. Reviewed, Interpreted and Dictated by Zachary Mckeon III, MD Transcribed by Mony Lindo Authenticated and [facility]
== END ==
PROVIDERS: PCP Internal Medicine; Visit Provider Orthopaedic Surgery
DX: S62.101A Fracture of unspecified carpal bone, right wrist, initial encounter for closed fracture (principal); Z09 Encounter for follow-up examination after completed treatment for conditions other than malignant neoplasm; S72.001A Fracture of unspecified part of neck of right femur, initial encounter for closed fracture
CPT/HCPCS: 73110; 73502

== ENCOUNTER 2022-07-14 12:15 | Outpatient (RCR) | payer MEDICARE, SELFPAY | END 2022-07-14 13:20 | disposition home or self-care (01) | LOC: OT 12:15 | PROVIDERS: Visit Provider Orthopaedic Surgery | DX: S62.101A Fracture of unspecified carpal bone, right wrist, initial encounter for closed fracture (principal) ==

== ENCOUNTER → 2022-09-01 09:41 | Outpatient (CLI) | payer MEDICARE, SELFPAY ==
--- NOTE | 2022-09-01 09:45 | XR_ITS ---
FINAL REPORT CLINICAL HISTORY: right wrist fx COMPARISON: 07/14/2022 FINDINGS: RIGHT WRIST Three views demonstrate subacute impacted fracture of the distal radial metaphysis with evidence of interval healing. No new fracture seen. Degenerative changes are noted. Osteopenia is present. The visualized joint spaces are normally aligned. The soft tissues are unremarkable. IMPRESSION: Subacute fracture distal radial metaphysis with interval healing. Reviewed, Interpreted and Dictated by Zachary Mckeon III, MD Transcribed by Mony Lindo Authenticated and [facility]
--- NOTE | 2022-09-01 09:45 | XR_ITS ---
FINAL REPORT CLINICAL HISTORY: right femur fx COMPARISON: 07/14/2022 FINDINGS: RIGHT HIP Two views of the right hip demonstrate postoperative change from right hip arthroplasty. No acute fracture or dislocation. The joint spaces appear normal. The visualized bony structures are well aligned. No soft tissue abnormality is seen. IMPRESSION: No acute bony abnormality. Reviewed, Interpreted and Dictated by Zachary Mckeon III, MD Transcribed by Mony Lindo Authenticated and [facility]
== END ==
PROVIDERS: Visit Provider Orthopaedic Surgery
DX: S72.001A Fracture of unspecified part of neck of right femur, initial encounter for closed fracture (principal); S62.101A Fracture of unspecified carpal bone, right wrist, initial encounter for closed fracture
CPT/HCPCS: 73110; 73502

== ENCOUNTER → 2022-12-15 10:20 | Outpatient (CLI) | payer MEDICARE, SELFPAY ==
--- NOTE | 2022-12-15 10:24 | XR_ITS ---
FINAL REPORT CLINICAL HISTORY: right hip pain sx x 5 months ago FINDINGS: Right hip Three views were obtained. There is no acute fracture or dislocation. There are postoperative changes from right hip arthroplasty. There are degenerative changes in the lower lumbar spine. No soft tissue abnormality is identified. IMPRESSION: Degenerative and postoperative changes. Reviewed, Interpreted and Dictated by Zachary Mckeon III, MD Transcribed by Olena Douglas Authenticated and [facility]
--- NOTE | 2022-12-15 10:24 | XR_ITS ---
FINAL REPORT CLINICAL HISTORY: rt wrist pain FINDINGS: Right wrist Three views were obtained. There is no acute fracture or dislocation. There is a chronic fracture of the distal radius with chronic deformity. The bones are osteopenic. Mild and moderate degenerative changes are identified. IMPRESSION: Degenerative and chronic appearing findings. Reviewed, Interpreted and Dictated by Zachary Mckeon III, MD Transcribed by Olena Douglas Authenticated and [facility]
== END ==
PROVIDERS: PCP Nurse Practitioner Family; Visit Provider Orthopaedic Surgery
DX: S72.001A Fracture of unspecified part of neck of right femur, initial encounter for closed fracture (principal); S62.101A Fracture of unspecified carpal bone, right wrist, initial encounter for closed fracture
CPT/HCPCS: 73110; 73502

== ENCOUNTER 2023-02-05 17:01 | Observation (INO) | payer MEDICARE, SELFPAY ==
[2023-02-05] VITALS (7 sets, daily range): BP systolic 112–149; BP diastolic 45–57; PULSE 68–79; RESP 18; TEMP 36.6–37.1; O2SAT 95–97; BMI 21.9; BMI 19.9
--- NOTE | 2023-02-05 17:34 | XR_ITS ---
PROCEDURE INFORMATION: Exam: XR Left Femur Exam date and time: 02/05/2023 6:48 PM Age: 82 years old Clinical indication: Thigh; Patient HX: Left hip pain, no known injury. Patient does a lot of walking. TECHNIQUE: Imaging protocol: Radiologic exam of the left femur. Views: 2 views. COMPARISON: CR XR HIP LT 2-3V W/PELVIS 02/05/2023 6:46 PM FINDINGS: Bones/joints: Moderate osteophytosis and degenerative changes involve the left hip. Upsf-rk-fountsxe posterior cortical thickening of the left femur diaphysis, favored to represent moderate stress reactive changes. Soft tissues: Unremarkable. IMPRESSION: 1. Moderate osteophytosis and degenerative changes involve the left hip. 2. Ktil-ob-cegukdtz posterior cortical thickening of the left femur diaphysis, favored to represent moderate stress reactive changes.
--- NOTE | 2023-02-05 17:34 | XR_ITS ---
PROCEDURE INFORMATION: Exam: XR Left Hip Exam date and time: 02/05/2023 6:46 PM Age: 82 years old Clinical indication: Patient HX: Left hip pain, no known injury. Patient does a lot of walking for exercise. TECHNIQUE: Imaging protocol: Radiologic exam of the left hip. Views: 2 or 3 views hip with pelvis when performed. COMPARISON: CT ABDOMEN PELVIS W CON 02/05/2023 6:35 PM FINDINGS: Bones/joints: Tzzp-jf-helggszp posterior cortical thickening of the left femur diaphysis, favored to represent moderate stress reactive changes. Moderate osteophytosis and degenerative changes involve the left hip. Soft tissues: Unremarkable. IMPRESSION: 1. Tvsl-nd-obcpqddp posterior cortical thickening of the left femur diaphysis, favored to represent moderate stress reactive changes. 2. Moderate osteophytosis and degenerative changes involve the left hip.
--- NOTE | 2023-02-05 17:34 | CT_ITS ---
PROCEDURE INFORMATION: Exam: CT Abdomen And Pelvis With Contrast Exam date and time: 02/05/2023 6:35 PM Age: 82 years old Clinical indication: Abdominal pain; Localized; Left lower quadrant (llq); Additional info: Llq pain, L back pain radiating down L leg TECHNIQUE: Imaging protocol: Computed tomography of the abdomen and pelvis with contrast. Radiation optimization: All CT scans at this facility use at least one of these dose optimization techniques: automated exposure control; mA and/or kV adjustment per patient size (includes targeted exams where dose is matched to clinical indication); or iterative reconstruction. Contrast material: ISOVUE; Contrast volume: 75 ml; Contrast route: IV; REPORTING DATA: Count of CT and Cardiac NM exams in prior 12 months: This patient has received 4 known CTs and 0 known cardiac nuclear medicine studies in the 12 months prior to the current study. COMPARISON: CT BONY PELVIS 02/05/2023 6:32 PM FINDINGS: Lungs: Dependent bilateral lung base opacities favor atelectasis. Heart: Cardiomegaly present. Liver: Nodular contours of the liver compatible with cirrhosis. Gallbladder and bile ducts: Normal. No calcified stones. No ductal dilation. Pancreas: Normal. No ductal dilation. Spleen: Normal. No splenomegaly. Adrenal glands: Normal. No mass. Kidneys and ureters: Normal. No hydronephrosis. Stomach and bowel: Nonspecific moderate thickening of the gastric wall. Moderate thickening of the cecum through the transverse colon which may represent infectious or inflammatory colitis. Appendix: No evidence of appendicitis. Intraperitoneal space: Low volume ascites surrounds the liver and spleen, extend to the posterior cul-de-sac. Vasculature: Moderate calcific atherosclerotic disease of the abdominal aorta without aneurysmal dilatation is present. Lymph nodes: Unremarkable. No enlarged lymph nodes. Urinary bladder: Unremarkable as visualized. Reproductive: Unremarkable as visualized. Bones/joints: Right hip arthroplasty with metal artifact that obscures evaluation of the lower pelvis. L2 anterior wedging with 50% loss of anterior height. Moderate loss of intervertebral disc space with degenerative changes at lumbar spine greatest from L3 through S1. Soft tissues: Mild anasarca of the abdomen and pelvis soft tissues. IMPRESSION: 1. Nodular contours of the liver compatible with cirrhosis. 2. Nonspecific moderate thickening of the gastric wall. 3. Moderate thickening of the cecum through the transverse colon which may represent infectious or inflammatory colitis. 4. Low volume ascites surrounds the liver and spleen, extend to the posterior cul-de-sac.
--- NOTE | 2023-02-05 17:34 | CT_ITS ---
PROCEDURE INFORMATION: Exam: CT Lumbar Spine Without Contrast Exam date and time: 02/05/2023 6:29 PM Age: 82 years old Clinical indication: Low back pain; Additional info: Llq pain, L back pain radiating down L leg TECHNIQUE: Imaging protocol: Computed tomography of the lumbar spine without contrast. Radiation optimization: All CT scans at this facility use at least one of these dose optimization techniques: automated exposure control; mA and/or kV adjustment per patient size (includes targeted exams where dose is matched to clinical indication); or iterative reconstruction. REPORTING DATA: Count of CT and Cardiac NM exams in prior 12 months: This patient has received 4 known CTs and 0 known cardiac nuclear medicine studies in the 12 months prior to the current study. COMPARISON: CT HIP RT WO CON 06/08/2022 11:12 AM FINDINGS: Bones/joints: L2 anterior wedging with approximately 50% loss of anterior height. L2-L3 of moderate broad-based posterior disc protrusion resulting moderate bilateral neural foraminal stenosis. Mild loss of intervertebral disc space with degenerative changes at L3 through S1 with endplate and facet osteophytosis of these levels and moderate broad-based posterior disc protrusion of L4-L5 resulting in moderate bilateral neural foraminal stenosis from L3 through S1. Vasculature: Moderate calcific atherosclerotic disease of the abdominal aorta without aneurysmal dilatation is present. Soft tissues: Moderate thickening of the cecum. Nonspecific low volume fluid at the posterior cul-de-sac. IMPRESSION: 1. L2 anterior wedging with approximately 50% loss of anterior height. 2. Mild loss of intervertebral disc space with degenerative changes at L3 through S1 with endplate and facet osteophytosis of these levels and moderate broad-based posterior disc protrusion of L4-L5 resulting in moderate bilateral neural foraminal stenosis from L3 through S1.
--- NOTE | 2023-02-05 17:34 | XR_ITS ---
PROCEDURE INFORMATION: Exam: XR Left Knee Exam date and time: 02/05/2023 6:49 PM Age: 82 years old Clinical indication: Patient HX: Left knee pain, no known injury. Patient does a lot of walking for exercise. TECHNIQUE: Imaging protocol: Radiologic exam of the left knee. Views: 3 views. COMPARISON: CR XR FEMUR LT 2V 02/05/2023 6:48 PM FINDINGS: Bones/joints: Aekg-du-lazzuzcj posterior cortical thickening of the left femur diaphysis, favored to represent moderate stress reactive changes. Small marginal osteophytes and degenerative changes involving the medial knee compartment. Soft tissues: Normal. IMPRESSION: 1. Vuoz-yo-egqridgd posterior cortical thickening of the left femur diaphysis, favored to represent moderate stress reactive changes. 2. Small marginal osteophytes and degenerative changes involving the medial knee compartment.
--- NOTE | 2023-02-05 17:34 | CT_ITS ---
PROCEDURE INFORMATION: Exam: CT Pelvis Without Contrast; Skeletal Exam date and time: 02/05/2023 6:32 PM Age: 82 years old Clinical indication: Pelvic pain; Prior surgery; Surgery date: 6+ months; Surgery type: Hip surgery due to FX from fall; Patient HX: No recent injury. ; Additional info: Llq pain, L back pain radiating down L leg TECHNIQUE: Imaging protocol: Computed tomography of the pelvis without contrast. Exam focused on the skeleton. Radiation optimization: All CT scans at this facility use at least one of these dose optimization techniques: automated exposure control; mA and/or kV adjustment per patient size (includes targeted exams where dose is matched to clinical indication); or iterative reconstruction. REPORTING DATA: Count of CT and Cardiac NM exams in prior 12 months: This patient has received 4 known CTs and 0 known cardiac nuclear medicine studies in the 12 months prior to the current study. COMPARISON: CT PELVIS WO CON 06/08/2022 11:09 AM FINDINGS: Stomach and bowel: Moderate thickening of the colon from the cecum to the transverse colon which may represent infectious or inflammatory colitis. Intraperitoneal space: Nonspecific low volume fluid at the posterior cul-de-sac. Vasculature: Moderate calcific atherosclerotic disease of the abdominal aorta without aneurysmal dilatation is present. Bones/joints: Right hip arthroplasty with metal artifact that obscures evaluation of the lower pelvis. Mild loss of intervertebral disc space with degenerative changes at L4-L5. Soft tissues: Unremarkable. IMPRESSION: 1. Moderate thickening of the colon from the cecum to the transverse colon which may represent infectious or inflammatory colitis. 2. Nonspecific low volume fluid at the posterior cul-de-sac.
--- NOTE | 2023-02-05 17:34 | PC.NURSE ---
DR NGUYEN AT BEDSIDE
--- NOTE | 2023-02-05 17:41 | HMH.EDGENADL ---
Discharge Plan Disposition Patient Disposition: Admitted Condition: Good Clinical Impressions Clinical Impression: Colitis, Left sided sciatica, General weakness Discharge ED Provider: Fang Morales General Adult HPI General Chief complaint: Back Pain/Injury Stated complaint: bilateral leg pain, unable to eat and use restroom Time Seen by Provider: 02/05/23 17:22 Mode of Arrival: Wheelchair Source of Information: Patient Limitations: No Limitations Description of Symptoms (Recalled from ER Triage Doc. by RN): left side sciatica pain x2 weeks, seen at [facility] ER 2 times, has an appt with PCP on sunday for MRI, pt is here with a caregiver, caregiver states patient is also having problems with having bowel movements and maybe having constipation. History of Present Illness HPI narrative: This patient is an 82-year-old female with a history of primary biliary cirrhosis, Sjogren's disease, and protein calorie malnutrition presented to the emergency department for evaluation with concern for left-sided sciatica for 2 weeks. According to patient's caregiver, the patient typically walks a mile a day, however she has had difficulty walking over the last 2 weeks given pain in her left lower back/buttocks that radiates down her left leg. No new falls or other recent traumatic injuries noted. They note that she has been seen at outside hospital ER twice and has been prescribed pain medication as well as steroids for this. She has taken these without improvement. Also, now she is constipated as a result of pain medication use per the caregivers. She is not eating or drinking very much and she is not having good bowel movements. She does have a history of right hip fracture, but no previous injuries to the left hip. She has had no fevers, chills, or other concerns. She is still able to bear weight on the left leg, but she is not walking nearly as much as she used to. Related Data Home Medications Medication Instructions Recorded Confirmed magnesium oxide 400 mg (241.3 mg 400 mg PO DAILY Supplement 06/08/22 02/05/23 magnesium) tablet ursodiol 300 mg capsule 1,200 mg PO HS GALLSTONES 06/08/22 02/05/23 methenamine hippurate 1 gram tablet 1 g PO DAILY UTI 02/05/23 02/05/23 prednisone 20 mg tablet 20 mg PO DAILY steroid 02/05/23 02/05/23 vits no.130-ferrous fum 1 ea PO DAILY vitamin 02/05/23 02/05/23 27 mg iron-folic acid 800 mcg tablet ( Vitamin) sennosides 8.6 mg-docusate sodium 1 tab PO DAILY Constipation 02/05/23 02/05/23 50 mg tablet (Stool Softener-Stimulant Laxative) Allergies Allergy/AdvReac Type Severity Reaction Status Date / Time No Known Allergies Allergy Verified 12/15/22 10:50 [facility] Disclaimer: The information contained in this section may have been updated after the patient was seen, as this information can be updated by other users. Medical History History of sepsis Kidney stone Surgical History H/O bilateral oophorectomy H/O lithotripsy History of appendectomy History of section History of urethral stent Family History (Updated 02/05/23 @ 21:29 by Renae Leiva RN) Other Family history of heart disease No significant family history Social History (Updated 02/05/23 @ 21:27 by Renae Leiva RN) Smoking Status: Never smoker alcohol intake: never substance use type: denies use current occupational status: retired Travel in the last 8 weeks: None housing: assisted living facility lives independently: No ROS Obtained: Yes All systems reviewed & no additional complaints except as documented Physical Exam General General appearance: alert and in no apparent distress Head Head exam: atraumatic and normocephalic Eye Eye exam: Present normal appearance, PERRL and EOMI ENT ENT exam: Present normal exam, normal oropharynx, muc
[2023-02-05 17:57] LABS: Basophils % 0.2 % (0.1-2.0); Eosinophils # 0.2 K/mm3 (0.0-0.4); Eosinophils % 1.4 % (0.1-12.0); Hematocrit 44.3 % (37.0-47.0); Lymphocytes # 0.4 K/mm3 (0.7-4.5); Lymphocytes % 2.5 % (10-50); Mean Corpuscular HGB Conc 31.7 g/dL (31.8-35.4); Mean Corpuscular Hemoglobin 34.5 pg (27.0-31.2); Mean Corpuscular Volume 108.9 fl (81-99); Mean Platelet Volume 8.8 fl (7.4-10.4); Monocytes # 0.6 K/mm3 (0.1-1.0); Monocytes % 4.2 % (1.7-9.3); Neutrophils # 13.5 K/mm3 (1.8-7.8); Neutrophils % 91.7 % (37.0-80.0); Platelet Count 140 K/mm3 (142-424); Red Blood Count 4.07 M/mm3 (4.20-5.40); Red Cell Distribution Width 14.3 % (11.5-17.5); White Blood Count 14.7 K/mm3 (4.8-10.8)
[2023-02-05 18:00] LABS: MANUAL DIFFERENTIAL MANUAL DIFFERENTIAL (MANUAL DIFF)
[2023-02-05 18:07] LABS: Chloride 109 mmol/L (98-107); Potassium 3.4 mmoL/L (3.5-5.1); Sodium 139 mmol/L (136-145)
[2023-02-05 18:10] LABS: Anion Gap 6.4 mEq/L (5-15); Blood Urea Nitrogen 16 mg/dl (7-17); Calcium 8.6 mg/dl (8.4-10.2); Carbon Dioxide 27 mmol/L (22.0-30.0); Creatinine Clearance Estimated 37 mL/min (50-200); Estimated Glomerular Filt Rate 118 ml/min (>60); GFR (African American) 143 ML/MIN (>60); Glucose 120 mg/dl (74-100)
[2023-02-05 18:58] LABS: Lymphocytes % 3 % (10-50); Monocytes % 7 % (2-9); Neutrophils % 52 % (42-76); Total Cells Counted 100
[2023-02-05 18:59] LABS: Macrocytosis 2+; Platelet Estimate Slight Decrease; RBC Morphology Normal
--- NOTE | 2023-02-05 20:01 | PC.NURSE ---
Addendum entered by Kyle Fox RN 02/05/23 20:03: ER made aware Original Note: placed patient on bedpan for urine specimen collection, pt stated she wasnt able to go and pt depends was wet prior to bedpan placement. RN attempted to get a in and out cath specimen however that was unsuccessful as well. placed in a fresh clean brief
--- NOTE | 2023-02-05 20:03 | PC.NURSE ---
ADITYA GLASS on the phone with [facility]
--- NOTE | 2023-02-05 20:39 | PC.NURSE ---
Called report to 2nd floor JAICNTO Whaley and answered all questions, made aware of unable to get urine specimen while down here in ER
--- NOTE | 2023-02-05 20:48 | PC.NURSE ---
Patient arrived to floor via stretcher at 20:47.
--- NOTE | 2023-02-05 21:26 | EXP.HP ---
History of Present Illness *Admission Date: 02/05/23 *Reason for visit:: colitis *History of present illness: 82 year old female presented to [facility] with family for c/o left sided lower back pain. PMHX of primary biliary cirrhosis, Sjogren's disease, chronic UTI, PAD, and protein calorie malnutrition. The pt's daughter reports decline in mobility for the past two weeks due to sciatica pain. The pt was seen twice at [facility] ED and sent home with pain medication without relief. Her ED workup reveals a leukocytosis of 14.7, hypokalemia of 3.4, and CT scans of the pelvis and abdomen represent colitis. Her lumbar spine reveals degenerative disc changes at L3 and degenerative changes involving the left hip. Due to pain control and colitis, the ED physician consulted [facility] hospitalist team for further medical management. The pt was ordered oral potassium replacement in the ED. The pt did not receive the medication due to inability to swallow. Upon arrival to the medical floor the pt is in pain from her sciatica. IV potassium replacement was ordered as well as a jenkins catheter. The pt is incontinent. A UA, Urine culture, and blood cultures were also ordered. Family reports bad order coming from pt's depends. The pt takes methenamine hippurate daily. She will be started on Rocephin, IV fluids hydration, steroids, and receive anti inflammatory for pain control. [facility] Disclaimer: The information contained in this section may have been updated after the patient was seen, as this information can be updated by other users. Medical History History of sepsis Kidney stone Surgical History H/O bilateral oophorectomy H/O lithotripsy History of appendectomy History of section History of urethral stent Family History (Updated 02/05/23 @ 21:29 by Renae Leiva RN) Family history of heart disease No significant family history Social History (Updated 02/05/23 @ 21:27 by Renae Leiva RN) Smoking Status: Never smoker alcohol intake: never substance use type: denies use current occupational status: retired Travel in the last 8 weeks: None housing: assisted living facility lives independently: No Review of Systems *Cardiovascular Cardiovascular: Reports system reviewed and no additional complaints, except as documented *Respiratory Respiratory: Reports system reviewed and no additional complaints, except as documented *Gastrointestinal Gastrointestinal: Reports system reviewed and no additional complaints, except as documented *Genitourinary Genitourinary: Reports urinary incontinence *Musculoskeletal Musculoskeletal: Reports back pain (Left lower back pain) *Neurologic Neurologic: Reports system reviewed and no additional complaints, except as documented Meds Home Medications and Allergies Home Medications Medication Instructions Recorded Confirmed Type magnesium oxide 400 mg (241.3 mg 400 mg PO DAILY Supplement 06/08/22 02/05/23 History magnesium) tablet ursodiol 300 mg capsule 1,200 mg PO HS Gallstones 06/08/22 02/05/23 History methenamine hippurate 1 gram tablet 1 g PO BID UTI prevention 02/05/23 02/06/23 History prednisone 20 mg tablet 20 mg PO DAILY steroid 02/05/23 02/05/23 History vits no.130-ferrous fum 1 ea PO DAILY vitamin 02/05/23 02/05/23 History 27 mg iron-folic acid 800 mcg tablet ( Vitamin) sennosides 8.6 mg-docusate sodium 1 tab PO DAILY Constipation 02/05/23 02/05/23 History 50 mg tablet (Stool Softener-Stimulant Laxative) New Prescriptions to Start Prescriptions: Allergies Allergy/AdvReac Type Severity Reaction Status Date / Time No Known Allergies Allergy Verified 12/15/22 10:50 Exam Data for Last 24 hours Vital signs and Labs for Last 24 Hours: Temp Pulse Resp BP Pulse Ox O2 Del Method 98.7 F 74 18 149/54 H
[2023-02-05 21:35] LABS: Erythrocyte Sedimentation Rate 17 mm/hr (0-30)
[2023-02-05 21:45] LABS: Lactic Acid 1.6 mmol/L (0.7-2.1)
[2023-02-05 21:49] LABS: Microscopic, Urine URINE MICROSCOPIC (MICROSCOPIC)
--- NOTE | 2023-02-05 21:52 | PC.NURSE ---
@0853 16 F jenkins catheter placed per [employer] orders, UA sent to lab
[2023-02-05 22:01] LABS: Appearance,Urine CLEAR (Clear); Bilirubin,Urine Negative (Negative); Blood, Urine TRACE-I (Negative); Color,Urine YELLOW (Yellow); Glucose,Urine (UA) Negative (Negative); Ketones,Urine Negative (Negative); Leukocyte Esterase,Urine Negative (Negative); Nitrate,Urine POSITIVE (Negative); PH,Urine 7.5 (5.0-8.5); Protein,Urine Negative (Negative)
[2023-02-05 22:14] LABS: Bacteria,Urine 3+ /lpf; RBC,Urine Occasional #/hpf (0-3)
[2023-02-06] VITALS (11 sets, daily range): BP systolic 118–160; BP diastolic 57–68; PULSE 67–80; RESP 15–18; TEMP 36.8–37.3; O2SAT 93–99; BMI 19.9
[2023-02-06 06:52] LABS: Basophils % 0.1 % (0.1-2.0); Eosinophils # 0.1 K/mm3 (0.0-0.4); Hematocrit 39.2 % (37.0-47.0); Lymphocytes # 0.8 K/mm3 (0.7-4.5); Lymphocytes % 6.7 % (10-50); Mean Corpuscular HGB Conc 31.8 g/dL (31.8-35.4); Mean Corpuscular Hemoglobin 34.5 pg (27.0-31.2); Mean Corpuscular Volume 108.2 fl (81-99); Mean Platelet Volume 8.7 fl (7.4-10.4); Monocytes # 0.6 K/mm3 (0.1-1.0); Monocytes % 4.9 % (1.7-9.3); Neutrophils # 10.9 K/mm3 (1.8-7.8); Neutrophils % 87.2 % (37.0-80.0); Platelet Count 123 K/mm3 (142-424); Red Blood Count 3.62 M/mm3 (4.20-5.40); Red Cell Distribution Width 14.5 % (11.5-17.5); White Blood Count 12.5 K/mm3 (4.8-10.8)
[2023-02-06 06:53] LABS: MANUAL DIFFERENTIAL MANUAL DIFFERENTIAL (MANUAL DIFF)
[2023-02-06 06:55] LABS: Hemoglobin 12.5 g/dL (12.2-16.2)
[2023-02-06 06:56] LABS: Chloride 112 mmol/L (98-107)
[2023-02-06 06:57] LABS: Potassium 3.4 mmoL/L (3.5-5.1); Sodium 141 mmol/L (136-145)
[2023-02-06 06:59] LABS: Blood Urea Nitrogen 15 mg/dl (7-17); Creatinine Clearance Estimated 34 mL/min (50-200); Estimated Glomerular Filt Rate 96 ml/min (>60); GFR (African American) 116 ML/MIN (>60)
[2023-02-06 07:00] LABS: Anion Gap 5.4 mEq/L (5-15); Calcium 8.4 mg/dl (8.4-10.2); Carbon Dioxide 27 mmol/L (22.0-30.0); Glucose 86 mg/dl (74-100)
[2023-02-06 07:48] LABS: Lymphocytes % 6 % (10-50); Monocytes % 2 % (2-9); Neutrophils % 87 % (42-76); Total Cells Counted 100
[2023-02-06 07:49] LABS: Hypochromasia 2+; Macrocytosis 1+
[2023-02-06 07:50] LABS: Platelet Estimate Slight Decrease
[2023-02-06 08:21] LABS: Ammonia 36 umol/L (9-30)
--- NOTE | 2023-02-06 11:46 | HMH.PTEV ---
Physical Therapy Evaluation Rehab PT IP Evaluation Start: 02/05/23 21:54 Freq: ONCE Status: Active Protocol: Document 02/06/23 11:40 PHORNE (Rec: 02/06/23 11:46 PHORNE [id number]) Subjective/History History History 82 yowf adm to [facility] with colitis. HX of primary biliary cirrhosis, Sjogren's disease, chronic UTI, PAD, and protein calorie malnutrition. She reports recent increase in L LE sciatic pain without numbness or tingling. She reports she has 3 steps to enter the home, she generally ambulates with RW, and she lives alone with family assist available. Subjective Subjective Currently pain in the L LE is increased over baseline and resulting in difficulty ambulating. New diagnosis of cancer in past 12 No months? Rehab PT IP Eval Objective Appearance Patient Behavior Appropriate Patient Orientation Person,Place,Time Difficulty following instructions none Speech Pattern Clear Ambulation Patient Able to Ambulate Yes Ambulation Observation IP General Gait Pattern Observation Antalgic Gait Ambulation Distance (feet) 6 Ambulation Assistive Device Rolling Walker Ambulation Ability Minimal x 1 (25% assist) Balance Ability to Arise Able, uses arms to help Sitting Balance Steady, safe Standing Balance Unsteady Dynamic Sitting Balance Ability Good Dynamic Standing Balance Ability Poor Transfers Bed Transfer Ability Minimal x 1 (25% assist) Chair Transfer Ability Minimal x 1 (25% assist) Sit to Stand Bed Transfer Ability Minimal x 1 (25% assist) Sit to Stand Chair Transfer Ability Minimal x 1 (25% assist) ROM All Extremities PT ROM Status WFL MMT All Extremities PT MMT WFL Rehab PT IP prob,goals,plan Problems Date of Evaluation: 02/06/23 PT IP Problems Bed Mobility,Transfers,Gait Rehab Potential Rehab Potential Good Plan PT Intervention Plan Bed Mobility,Transfers,Gait, Therapeutic Exercise PT Plan Frequency Daily Duration LOS Discharge Goals Bed Transfer Ability Contact Guard/Hand Hold Sit to Stand Chair Transfer Ability Contact Guard/Hand Hold Ambulation Assistive Device
--- NOTE | 2023-02-06 13:59 | HMH.OTEV ---
OT Inpatient Evaluation Rehab OT IP Evaluation Start: 02/06/23 10:07 Freq: ONCE Status: Active Protocol: Document 02/06/23 13:48 CJDIONNE (Rec: 02/06/23 13:59 [id number] [id number]) Rehab OT IP Assessment Subjective History 82 year old female presented to [facility] with family for c/o left sided lower back pain. PMHX of primary biliary cirrhosis, Sjogren's disease, chronic UTI, PAD, and protein calorie malnutrition. The pt' s daughter reports decline in mobility for the past two weeks due to sciatica pain. The pt was seen twice at [facility] ED and sent home with pain medication without relief. Her ED workup reveals a leukocytosis of 14. 7, hypokalemia of 3.4, and CT scans of the pelvis and abdomen represent colitis. Her lumbar spine reveals degenerative disc changes at L3 and degenerative changes involving the left hip. Due to pain control and colitis, the ED physician consulted [facility] hospitalist team for further medical management. The pt was ordered oral potassium replacement in the ED. The pt did not receive the medication due to inability to swallow. Upon arrival to the medical floor the pt is in pain from her sciatica. IV potassium replacement was ordered as well as a jenkins catheter. The pt is incontinent. A UA, Urine culture, and blood cultures were also ordered. Family reports bad order coming from pt's depends. The pt takes methenamine hippurate daily. She will be started on Rocephin, IV fluids hydration, steroids, and receive anti inflammatory for pain control. I will do whatever you nee
--- NOTE | 2023-02-06 14:00 | SW/DCPLANNER ---
Addendum entered by Skylar Zhao 02/07/23 11:36: [place] w/ [facility] stated that patient has been accepted for services. Addendum entered by Skylar Zhao 02/07/23 09:12: Patient/family have decided to discharge home w/ 24/7 sitters and home health services. Patient information/order has been faxed to [facility]. The plan for this patient is to discharge home today. Original Note: Dr Thornton and I spoke w/ patient and her caregiver this AM regarding plans once medically stable for discharge. PT evaluated patient and recommended SNF level of care at time of discharge. I did discuss w/ patient and caregiver that placement is recommended and it would be private pay. PT also stated that patient could return home w/ home health and 24/7 care. Caregiver stated that she would speak w/ patient's family and then update me regarding discharge plans. I was also able to speak w/ patient's daughter this afternoon that resides in [place]. Daughter stated that she would prefer patient discharge home w/ home health services as long as patient's significant other would allow 24/7 in home care. Per daughter patient's family are having a meeting regarding situation this evening. I will continue to follow up w/ patient, caregiver, daughter, and MD. Patient will be ready for discharge tomorrow: placement under private pay vs home w/ home health and 24/7 care vs Hospice services.
--- NOTE | 2023-02-06 14:36 | EXP.ACUTE.PN ---
Subjective *Date: 02/06/23 *Time: 14:36 Interval history: Weak and fatigued this morning. Complaining of low back pain. Getting minimal relief from Toradol. Caregiver at bedside. Stable on room air. Denies nausea vomiting or diarrhea. Medical Exam Vital signs and Labs for Last 24 Hours: Vital Signs Temp Pulse Pulse Resp BP BP Pulse Ox 02/06/23 10:57 98.7 F 78 16 118/63 93 L 02/06/23 08:36 70 02/06/23 07:11 98.3 F 69 15 126/57 L 99 02/06/23 06:34 02/06/23 04:00 70 02/06/23 05:00 02/06/23 03:00 02/06/23 04:00 98.4 F 71 18 139/58 L 97 02/06/23 00:00 70 02/05/23 21:45 70 02/06/23 01:00 02/05/23 23:52 98.3 F 70 18 138/54 L 95 02/05/23 22:54 02/05/23 21:00 02/05/23 21:13 97.9 F 73 18 140/54 L 96 02/05/23 20:40 98.7 F 74 18 149/54 H 02/05/23 18:00 69 18 135/47 L 97 02/05/23 17:30 68 18 112/45 L 97 02/05/23 17:02 97.9 F 79 18 144/57 H 96 O2 Del Method 02/06/23 10:57 Room Air 02/06/23 08:36 02/06/23 07:11 Room Air 02/06/23 06:34 Room Air 02/06/23 04:00 02/06/23 05:00 Room Air 02/06/23 03:00 Room Air 02/06/23 04:00 Room Air 02/06/23 00:00 02/05/23 21:45 02/06/23 01:00 Room Air 02/05/23 23:52 Room Air 02/05/23 22:54 Room Air 02/05/23 21:00 Room Air 02/05/23 21:13 Room Air 02/05/23 20:40 Room Air 02/05/23 18:00 02/05/23 17:30 02/05/23 17:02 Room Air Intake and Output 02/05/23 02/06/23 02/06/23 23:59 07:59 15:59 Intake Total 0 / 240 240 / 240 Output Total 0 / 0 350 / 350 0 / 350 Balance 0 / 0 -350 / -110 240 / -110 Intake: Intake, Oral Amount 0 / 240 240 / 240 Output: Output, Urine Amount 0 / 0 350 / 350 0 / 350 Other: Number of Unmeasured Voids 1 1 0 Number of Bowel Movements 1 1 Weight 49.215 kg 49.215 kg 49.21 kg Patient Weight 02/06/23 23:59 Weight 49.21 kg Laboratory Results - last 24 hr 02/05/23 17:50: WBC 14.7 H, RBC 4.07 L, Hgb 14.0, Hct 44.3, MCV 108.9 H, MCH 34.5 H, MCHC 31.7 L, RDW 14.3, Plt Count 140 L, MPV 8.8, Neut % (Auto) 91.7 H, Lymph % (Auto) 2.5 L, Otoe % (Auto) 4.2, Eos % (Auto) 1.4, Baso % (Auto) 0.2, Neut # (Auto) 13.5 H, Lymph # (Auto) 0.4 L, Otoe # (Auto) 0.6, Eos # (Auto) 0.2, Baso # (Auto) 0.0, Total Counted 100, Neutrophils % (Manual) 52, Band Neutrophils % 38.0 H, Lymphocytes % (Manual) 3 L, Monocytes % (Manual) 7, Platelet Estimate Slight decrease, RBC Morphology Normal, Macrocytosis 2+, ESR 17, Sodium 139, Potassium 3.4 L, Chloride 109 H, Carbon Dioxide 27, Anion Gap 6.4, BUN 16, Creatinine 0.50 L, Estimated Creat Clear 37, Estimated GFR 118, Est GFR ( Amer) 143, Glucose 120 H, Calcium 8.6 02/05/23 21:25: Lactate 1.6 02/05/23 21:40: Urine Color Yellow, Urine Appearance Clear, Urine pH 7.5, Ur Specific Tilly 1.010, Urine Protein Negative, Urine Glucose (UA) Negative, Urine Ketones Negative, Urine Blood Trace-i, Urine Nitrate Positive, Urine Bilirubin Negative, Urine Urobilinogen 4.0, Ur Leukocyte Esterase Negative, Urine RBC Occasional, Urine WBC 3-5, Ur Squamous Epith Cells None, Urine Bacteria 3+ 02/06/23 06:35: WBC 12.5 H, RBC 3.62 L, Hgb 12.5 D, Hct 39.2, MCV 108.2 H, MCH 34.5 H, MCHC 31.8, RDW 14.5, Plt Count 123 L, MPV 8.7, Neut % (Auto) 87.2 H, Lymph % (Auto) 6.7 L, Otoe % (Auto) 4.9, Eos % (Auto) 1.0, Baso % (Auto) 0.1, Neut # (Auto) 10.9 H, Lymph # (Auto) 0.8, Otoe # (Auto) 0.6, Eos # (Auto) 0.1, Baso # (Auto) 0.0, Total Counted 100, Neutrophils % (Manual) 87 H, Band Neutrophils % 5.0, Lymphocytes % (Manual) 6 L, Monocytes % (Manual) 2, Platelet Estimate Slight decrease, RBC Morphology Not Reportable, Hypochromasia 2+, Macrocytosis 1+, Sodium 141, Potassium 3.4 L, Chloride 112 H, Carbon Dioxide 27, Anion Gap 5.4, BUN 15, Creatinine 0.60, Estimated Creat Clear 34, Estimated GFR 96, Est GFR ( Amer) 116, Glucose 86 D, Calcium 8.4 02/06/23 08:00: Ammonia 36 H I & O for Labs
--- NOTE | 2023-02-06 17:51 | PC.NURSE ---
Leave jenkins catheter in at this time due to pt's wound to buttocks
--- NOTE | 2023-02-06 17:54 | P.EN_ITS ---
Advance care planning note: Active diagnosis: Primary biliary cirrhosis, Sjogren's, weight loss, lumbar compression fracture, intractable pain, progressive weakness The patient's active diagnoses are of sufficient risk that focused discussion on advanced care planning is indicated in order to allow the patient to thoughtfully consider personal goals of care; and, if situations arise that prevent the ability to personally give input, to ensure appropriate representation of their personal desires through documentation or informed surrogate decision makers. Discussion: Persons present and participating in discussion: Patient, in-home caregiver, daughter (via phone) Discussion: Discussed patient's chronic debilitating medical conditions and her progressive decline over the past year including hip fracture earlier this year progressive weakness, decreased mobility, weight loss. Patient has had progressive pain over the past few weeks in her back. Appears to have a new compression fracture in her back. Discussed her goals of care including being pain-free and being comfortable. Discussed concept of [place] [facility] placement which she has no interest in, home with home health and 24-hour care, risk for readmission, and close follow-up with pain management. Patient interested in going home. However given her goals for her care, discussed that hospice would align if she does not improve. Patient requested to go home tomorrow with home health and trial being at home. If not successful, is open to possible hospice referral. Patient continues to request to be DNR. Time spent: Total time spent [id number] in education and discussion directly related to advance care plannin minutes
--- NOTE | 2023-02-06 19:14 | PC.NURSE ---
Patient continuing with antibiotics and fluids; vital signs stable.
[2023-02-07] VITALS: PULSE 50
--- NOTE | 2023-02-07 03:08 | PC.NURSE ---
Pt alert and oriented x4, Pt catheter remains and is currently draining well. Pt pain has been managed this shift and continuing antibiotic therapy.Pt has slept well for the most part of the shift. Pt denies pain and all other needs at this time
[2023-02-07 04:00] VITALS: BP 175/70; PULSE 50; PULSE 68; RESP 18; TEMP 36.9; O2SAT 96; BMI 22.4
[2023-02-07 07:11] VITALS: BP 164/71; PULSE 79; RESP 16; TEMP 37; O2SAT 95
--- NOTE | 2023-02-07 07:36 | EXP.DC.SUM ---
General Admission date:: 02/05/23 Discharge date: 02/07/23 HPI HPI HPI: 82 year old female presented to [facility] with family for c/o left sided lower back pain. PMHX of primary biliary cirrhosis, Sjogren's disease, chronic UTI, PAD, and protein calorie malnutrition. The pt's daughter reports decline in mobility for the past two weeks due to sciatica pain. The pt was seen twice at [facility] ED and sent home with pain medication without relief. Her ED workup reveals a leukocytosis of 14.7, hypokalemia of 3.4, and CT scans of the pelvis and abdomen represent colitis. Her lumbar spine reveals degenerative disc changes at L3 and degenerative changes involving the left hip. Due to pain control and colitis, the ED physician [facility] for further medical management. The pt was ordered oral potassium replacement in the ED. The pt did not receive the medication due to inability to swallow. Upon arrival to the medical floor the pt is in pain from her sciatica. IV potassium replacement was ordered as well as a jenkins catheter. The pt is incontinent. A UA, Urine culture, and blood cultures were also ordered. Family reports bad order coming from pt's depends. The pt takes methenamine hippurate daily. She will be started on Rocephin, IV fluids hydration, steroids, and receive anti inflammatory for pain control. Hospital Course Hospital Course Hospital Course: 82 year old female presented to [facility] with family for c/o left sided lower back pain. PMHX of primary biliary cirrhosis, Sjogren's disease, chronic UTI, PAD, and protein calorie malnutrition. The pt's daughter reports decline in mobility for the past two weeks due to sciatica pain. The pt was seen twice at [facility] ED and sent home with pain medication without relief. Her ED workup reveals a leukocytosis of 14.7, hypokalemia of 3.4, and CT scans of the pelvis and abdomen represent colitis. Her lumbar spine reveals degenerative disc changes at L3 and degenerative changes involving the left hip. Admitted for pain control and further work-up with PT. pain stable while still. Responding to current therapy. Scheduled for close follow-up with pain management on 02/08. Extensive discussion with patient and family, desires to go home instead of skilled placement. Will discharge home with home health and close outpatient follow-up to further address her compression fracture. High risk of readmission. Problems addressed as follows: Compression fracture L2 Acute worsening of back pain Sciatic -CT showing wedge compression of L2 vertebrae. No significant trauma however had a scooting episode down the stairs about 3 to 4 days prior to onset of pain. Continued home prednisone to help with inflammation. Initiated on Toradol IV, lidocaine patch, received some improvement. Referred to pain management as an outpatient for further evaluation and possible intervention. Patient worked with PT and OT but was only able to stand for short period of time due to pain. Continue lidocaine patch and Toradol at discharge. COLITIS -Patient complains of constipation having a bowel movement once a week. Suspect colitis stercoral colitis from chronic constipation. No diarrhea at this time. Continue bowel regimen for goal of 1-2 soft bowel movements daily UTI -Urine growing 2 species of gram-negative rods. Transition to oral levofloxacin to complete 7-day course. Resume methenamine hippurate after completing levofloxacin for UTI prophylaxis. Blood cultures remain negative. Leukocytosis normalized. Patient stable for discharge home to continue antibiotics in the outpatient setting. Jenkins removed before discharge. HYPOKALEMIA -Repleted as needed during admission. Patient has primary biliary cirrhosis, continue home ursodiol. Complicates all aspects of her care. Significant autoimmune history including Sjogren's. Stable for discharge home. Has caregiver 27/11, lives with significant
[2023-02-07 07:59] LABS: Basophils % 0.2 % (0.1-2.0); Eosinophils # 0.2 K/mm3 (0.0-0.4); Hematocrit 39.9 % (37.0-47.0); Hemoglobin 12.5 g/dL (12.2-16.2); Lymphocytes # 1.2 K/mm3 (0.7-4.5); Lymphocytes % 12.9 % (10-50); Mean Corpuscular HGB Conc 31.2 g/dL (31.8-35.4); Mean Corpuscular Hemoglobin 33.7 pg (27.0-31.2); Mean Corpuscular Volume 107.8 fl (81-99); Mean Platelet Volume 8.9 fl (7.4-10.4); Monocytes # 0.4 K/mm3 (0.1-1.0); Monocytes % 4.7 % (1.7-9.3); Neutrophils # 7.1 K/mm3 (1.8-7.8); Neutrophils % 80.1 % (37.0-80.0); Platelet Count 118 K/mm3 (142-424); Red Cell Distribution Width 14.2 % (11.5-17.5); White Blood Count 8.9 K/mm3 (4.8-10.8)
[2023-02-07 08:05] LABS: Chloride 112 mmol/L (98-107); Potassium 3.2 mmoL/L (3.5-5.1); Sodium 141 mmol/L (136-145)
[2023-02-07 08:08] LABS: Alanine Aminotransferase 33 U/L (12-78); Albumin Level 2.2 g/dl (3.5-5.0); Albumin/Globulin Ratio 0.7 (1.1-1.8); Alkaline Phosphatase 333 U/L (38-126); Anion Gap 6.2 mEq/L (5-15); Aspartate Amino Transferase 47 U/L (14-36); Bilirubin,Total 2.2 mg/dl (0.2-1.3); Blood Urea Nitrogen 13 mg/dl (7-17); Calcium 8.5 mg/dl (8.4-10.2); Carbon Dioxide 26 mmol/L (22.0-30.0); Creatinine Clearance Estimated 38 mL/min (50-200); Estimated Glomerular Filt Rate 96 ml/min (>60); GFR (African American) 116 ML/MIN (>60); Glucose 116 mg/dl (74-100); Total Protein,Serum 5.2 g/dl (6.3-8.2)
[2023-02-07 09:04] LABS: Magnesium 1.7 mg/dl (1.6-2.3)
--- NOTE | 2023-02-07 10:30 | PC.NURSE ---
allevyn dsg applied to sacral area.
[2023-02-07 11:25] LABS: C-Reactive Protein 33.2 mg/L (0-4)
--- NOTE | 2023-02-08 13:50 | SW/DCPLANNER ---
Follow up phone call made w/ this patient on 02/08/23: patient stated that she is currently on her way to [facility] for Pain Mgt appointment. Patient stated that other than the pain she is doing okay. Patient did not have any further needs/questions at this time.
--- NOTE | 2023-02-14 15:57 | PC.NURSE ---
pt urine culture id and sensitivity on worklist. Pt d/c from hospital on Levaquin 750 mg PO x5 days. Urine culture ID and sensitivity states sensitive to Levaquin.
== END 2023-02-07 11:05 | disposition home health service (06) ==
LOC: ER 20:04 → 2ND 20:22
PROVIDERS: Nurse Practitioner Critical Care Medicine; Admitting Provider Internal Medicine Adolescent Medicine; Emergency Provider Emergency Medicine; PCP Nurse Practitioner Family; Visit Provider Internal Medicine Adolescent Medicine
DX: M54.32 Sciatica, left side (principal); S32.020A Wedge compression fracture of second lumbar vertebra, initial encounter for closed fracture; K52.9 Noninfective gastroenteritis and colitis, unspecified; N39.0 Urinary tract infection, site not specified; E87.6 Hypokalemia; R53.1 Weakness; Z79.899 Other long term (current) drug therapy; M35.00 Sjogren syndrome, unspecified; K74.3 Primary biliary cirrhosis; E46 Unspecified protein-calorie malnutrition; Z68.22 Body mass index [BMI] 22.0-22.9, adult; K59.09 Other constipation
CPT/HCPCS: 36415; 72131; 72192; 73502; 73552; 73562; 74177; 80048; 80053; 81001; 82140; 83605; 83735; 85007; 85025; 85651; 86140; 87040; 87086; 87088; 97163; 97165; 97530; 99285; G0378; J0131; J0696; Q9967

== ENCOUNTER → 2023-02-08 14:11 | Outpatient (POV) | payer MEDICARE, SELFPAY ==
--- NOTE | 2023-02-08 14:17 | EXP.PAIN.OV ---
HPI Data of Consult Patient: new to practice Consult date: 02/08/23 Requesting Physician: Fang Greer APRN Primary Care Provider: Kat Rees APRN Consult Narrative Reason for consult: Back pain, acute compression fracture History of present illness: Ms. Darby is a 82 year old female who presents today as a new patient. She is a referral from Dr. Thornton's office. Today she rates her pain a 10 out of 10. Patient states the pain is all in her low back. She describes this as a constant aching, throbbing, sharp sensation that is worse with increased activity. Patient states that earlier this year around May she had a kidney stone that went septic and that she was hospitalized and was on the vent for 8 days. Patient states she did end up with a COVID illness and around that timeframe she fell and fractured her pelvis and her wrist. Patient states that overall she was doing well and did not require immediate surgery. She did go to therapy at [facility] and was released around August. At that time she was able to increase her activity and was getting up and down using her rollator and doing well. Patient does present today with her care provider and family present including her daughter via telephone out of [place]. Patient states then approximately 2 to 3 weeks ago she was scooting down stairs on her bottom when she started experiencing worsening pain in her low back. Patient states she did present to the ER at [facility] and they believed it was more sciatic related issues. Patient was given some medication however the pain continued and she went back again for reevaluation with no additional diagnoses. Patient then came to [facility] where she was admitted and did have updated CT imaging showing a compression fracture. Patient states that she was given some pain medication however was only given 10 tablets and that she was discharged yesterday. Patient does state that she has a history of biliary sclerosis and believes she does have some lowered kidney function as well. Patient is interested in any help we may be able to provide. CC: Fang Greer APRN [facility] Disclaimer: The information contained in this section may have been updated after the patient was seen, as this information can be updated by other users. Medical History History of sepsis Kidney stone Surgical History H/O bilateral oophorectomy H/O lithotripsy History of appendectomy History of section History of urethral stent Family History Other Family history of heart disease No significant family history Social History (Updated 02/08/23 @ 15:03 by Ava Diggs RN) Smoking Status: Never smoker alcohol intake: never substance use type: denies use current occupational status: retired Travel in the last 8 weeks: None housing: assisted living facility lives independently: No Review of Systems Review of Systems Review of systems:: pertinent systems reviewed and negative unless documented below Review of systems (narrative): Review of Systems: General: No recent weight changes, no fever, no sleep disturbances Respiratory: No cough, no shortness of air, no recurring pulmonary infections Cardiovascular/peripheral vascular: No chest pain, no palpitations, no edema, no shortness of breath Gastrointestinal: No new onset incontinence, normal bowel movements reported Genitourinary: No new onset incontinence Musculoskeletal: Low back pain Psychiatric: [Normal mood/affect] Neurological: [Denies weakness in extremities], [denies balance issues] Meds Home Medications and Allergies Home Medications Medication Instructions Recorded Confirmed Type magnesium oxide 400 mg (241.3 mg 400 mg PO DAILY Supplement 06/08/22 02/05/23 History magnesium) tablet
[2023-02-08 15:02] VITALS: BP 103/70; PULSE 57; RESP 20; BMI 19.1
== END | disposition home or self-care (01) ==
PROVIDERS: PCP Nurse Practitioner Family; Visit Provider Nurse Practitioner Family
DX: M51.36 Other intervertebral disc degeneration, lumbar region (principal); S32.020A Wedge compression fracture of second lumbar vertebra, initial encounter for closed fracture; M54.50 Low back pain, unspecified; G89.29 Other chronic pain
CPT/HCPCS: 99202; G0463

== ENCOUNTER → 2023-02-09 13:32 | Outpatient (CLI) | payer MEDICARE, SELFPAY ==
--- NOTE | 2023-02-09 13:40 | XR_ITS ---
FINAL REPORT CLINICAL HISTORY: COMP FX L2,POST MENOPAUSAL FINDINGS: Using L1-4, the bone mineral density of the spine is 0.783 g/cm2, corresponding to T-score of -2.4. This is within the low bone density range but may be falsely elevated secondary to hypertrophic change. Using the left hip, the bone mineral density of the femoral neck is 0.469 g/cm2, corresponding to a T-score of -3.4. This is within the osteoporotic range. Using the distal third of the right forearm: The bone mineral density of the forearm is 0.406 g/cm2, corresponding to a T-score of -4.8. This is within the osteoporotic range. IMPRESSION: Low bone mineral density of the lumbar spine. This may be falsely elevated secondary to hypertrophic change. 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 NOTE: T-score: Standard deviation compared with peak bone mass of young adult mean. *Following the recommendations of the International Society of Bone densitometry, classification of hip BMD is based on the lower of two T-scores; total hip or femoral neck. Reviewed, Interpreted and Dictated by Zachary Mckeon III, MD Transcribed by Sonia Berumen Authenticated and [facility]
--- NOTE | 2023-02-09 14:25 | MR_ITS ---
FINAL REPORT CLINICAL HISTORY: COMPRESSION FRACTURE COMPARISON: None FINDINGS: Multiplanar MR imaging of the lumbar spine was performed without contrast. On the sagittal T2-weighted images, disc degeneration is seen throughout. There are degenerative endplate changes at multiple levels. The vertebral alignment is normal. There is a chronic mild L2 compression fracture. No bony mass is identified. The conus has an unremarkable appearance. There are cysts present in the sacral canal. L1-2: An annular bulge is present with osteophytes. There is no significant canal stenosis or neural foraminal narrowing. L2-3: An annular bulge is present with osteophytes and mild bilateral neural foraminal narrowing. L3-4: An annular bulge is present with osteophytes and facet osteoarthropathy. Mild bilateral neural foraminal narrowing is present. L4-5: An annular bulge is present with osteophytes and facet osteoarthropathy. There is mild right and moderate left neural foraminal narrowing. L5-S1: An annular bulge is present with osteophytes and facet osteoarthropathy. There is mild right and moderate left neural foraminal narrowing. There are nondisplaced acute or subacute sacral ala fractures consistent with sacral insufficiency fractures. IMPRESSION: Nondisplaced acute or subacute sacral ala fractures bilaterally, consistent with sacral insufficiency fractures. Multilevel degenerative disc disease and spondylosis as described. Reviewed, Interpreted and Dictated by Zachary Mckeon III, MD Transcribed by Yue Haji Authenticated and [facility]
== END ==
PROVIDERS: PCP Nurse Practitioner Family; Visit Provider Nurse Practitioner Family
DX: S32.020A Wedge compression fracture of second lumbar vertebra, initial encounter for closed fracture (principal); Y99.9 Unspecified external cause status
CPT/HCPCS: 72148; 76376; 77080

== ENCOUNTER → 2023-02-16 14:51 | Outpatient (POV) | payer MEDICARE, SELFPAY ==
[2023-02-16 15:06] VITALS: BP 124/64; PULSE 94; RESP 20; BMI 19.1
--- NOTE | 2023-02-16 15:36 | EXP.PAIN.SOA ---
[facility] Pain Management SOAP Note Subjective:: This patient is a very pleasant 82-year-old female that returns our clinic today regarding acute and chronic low back pain as well as bilateral hip and leg radicular symptoms left greater than right. Patient was here for initial visit on 02/08/2023. At that time patient had similar pain however she reports she is better today than she was at her initial visit in regards to low back pain as well as bilateral hip and leg radicular symptoms. Patient's lumbar MRIs showed chronic fracture L2 vertebral body. Multilevel degenerative disc disease. Multilevel disc bulge. Also, nondisplaced acute or subacute sacral ala fractures consistent with sacral insufficiency fractures. I suspect this is where the patient's low lumbar and pelvis source of pain. Patient is taking hydrocodone 7.5 mg 1 p.o. twice daily. Patient states this does help with her pain. This helps her with mobility. She was initially written a 14-day supplies. I will give her a 1 month supply today. Also, patient taking tizanidine 4 mg 1 p.o. at bedtime. Patient states this helps her sleep with minimal discomfort. We will refill these medications. Patient also complaining of a low left upper calf soreness that has been there for 1 week time. It seems to be localized and painful to touch. I recommend we have ultrasound Doppler test to rule out any DVT. Objective:: Patient is awake alert oriented x3. In some distress regarding low back pain and sitting. Motor strength upper extremities normal. Motor strength lower extremities normal. There is no gross sensory deficit. Gait is antalgic requiring a walker for stability. Assessment:: Degenerative disc lumbar spine multilevels. Lumbar radiculopathy. Chronic L2 vertebral body fracture. Bilateral sacral ala fractures nondisplaced. Plan:: We refill patient's pain medication [place] 7.5 mg 1 p.o. twice daily #60. Tizanidine 4 mg 1 p.o. nightly #30. Patient will return to see us in 1 month for follow-up visit. [facility] Disclaimer: The information contained in this section may have been updated after the patient was seen, as this information can be updated by other users. Medical History History of sepsis Kidney stone Surgical History H/O bilateral oophorectomy H/O lithotripsy History of appendectomy History of section History of urethral stent Family History Other Family history of heart disease No significant family history Social History (Updated 02/08/23 @ 15:03 by Ava Diggs RN) Smoking Status: Never smoker alcohol intake: never substance use type: denies use current occupational status: other Travel in the last 8 weeks: None housing: assisted living facility lives independently: No
== END | disposition home or self-care (01) ==
PROVIDERS: Visit Provider Nurse Anesthetist, Certified Registered
DX: M51.16 Intervertebral disc disorders with radiculopathy, lumbar region (principal); M84.48XS Pathological fracture, other site, sequela; S32.10XS Unspecified fracture of sacrum, sequela
CPT/HCPCS: 99212; G0463

== ENCOUNTER 2023-07-17 09:43 | Outpatient (CLI) | payer MEDICARE, SELFPAY ==
--- NOTE | 2023-07-17 09:48 | XR_ITS ---
FINAL REPORT CLINICAL HISTORY: Rt Hip Pain COMPARISON: 12/15/2022 FINDINGS: RIGHT HIP Two views of the right hip demonstrate postoperative changes from right hip arthroplasty, stable. No acute fracture or dislocation. The joint spaces appear normal. The visualized bony structures are well aligned. No soft tissue abnormality is seen. IMPRESSION: Stable postoperative changes without acute bony abnormality. Reviewed, Interpreted and Dictated by Zachary Mckeon III, MD Transcribed by Mony Lindo Authenticated and [facility]
== END 2023-07-17 23:59 ==
PROVIDERS: PCP Family Medicine; Visit Provider Orthopaedic Surgery
DX: M25.551 Pain in right hip (principal)
CPT/HCPCS: 73502

== ENCOUNTER 2023-08-29 13:50 | Outpatient (CLI) | payer MEDICARE, SELFPAY ==
--- NOTE | 2023-08-29 13:54 | US_ITS ---
FINAL REPORT CLINICAL HISTORY: Decreased Pedal Pulses,EDEMA,HLD,DISCOLRATION BILATERAL LE'S FINDINGS: ANKLE-BRACHIAL PRESSURE INDICES Pressure indices are as follows: RIGHT LOWER EXTREMITY: Ankle-brachial pressure index: 1.2 Comments: Normal LEFT LOWER EXTREMITY: Ankle-brachial pressure index: 1.2 Comments: Normal IMPRESSION: No evidence of significant obstructive peripheral vascular disease of the lower extremities Reviewed, Interpreted and Dictated by William Kaufman MD Transcribed by UBALDO Mann Authenticated and . [facility]
== END 2023-08-29 23:59 | disposition home or self-care (01) ==
LOC: RT 13:51
PROVIDERS: PCP Family Medicine; Visit Provider Nurse Practitioner
DX: R09.89 Other specified symptoms and signs involving the circulatory and respiratory systems (principal); R60.0 Localized edema; R20.8 Other disturbances of skin sensation; E78.5 Hyperlipidemia, unspecified
CPT/HCPCS: 93923

== ENCOUNTER 2024-01-15 10:55 | Outpatient (POV) | payer MEDICARE, SELFPAY | END 2024-01-15 23:59 | disposition home or self-care (01) | LOC: SC 10:57 | PROVIDERS: PCP Family Medicine; Visit Provider Dermatology | DX: Z00.00 Encounter for general adult medical examination without abnormal findings (principal) ==